=== PATIENT | female | born 1930 | race Caucasian/White ===

== ENCOUNTER → 2017-11-10 | Outpatient (CLI) | payer MEDICARE, OTHER ==
[~2017-11-10] MED LIST: CIPR250 PO; GLIM2; HYDACE5; HYDACE5 PO; IBUP200; MULVITB; PHENA200 PO; ROSU10TA; RXHYDACE PO
[2017-11-10 15:04] LABS: Source, Urine Clean Catch
[2017-11-10 15:48] LABS: Appearance, Urine Hazy (Clear); Color, Urine Yellow (P-Yellow)
[2017-11-10 15:49] LABS: Bacteria Not Seen /hpf; Bilirubin, Urine Neg (Neg); Blood, Urine Neg (Neg); Glucose Qualitative, Urine 1+ (Normal); Hyaline Casts 0-2 /lpf (0-2); Ketones, Urine Neg (Neg); Leukocyte Esterase, Urine Trace (Neg); Nitrite, Urine Neg (Neg); Protein, Urine 2+ (Neg); Red Blood Cells, Urine 0-2 /hpf (0-2); Squamous Epithelial Cells Few /hpf (Few); Urobilinogen, Urine NORM (Normal)
== END | disposition home or self-care (01) ==
LOC: LAB EV 14:45
PROVIDERS: Nurse Practitioner Family
DX: R10.9 Unspecified abdominal pain (principal)
CPT/HCPCS: 81001; 87086

== ENCOUNTER → 2019-04-28 | Outpatient (CLI) | payer MEDICARE, OTHER | END | disposition home or self-care (01) | LOC: LAB EV 15:00 → LAB SHORT 15:00 | DX: N39.0 Urinary tract infection, site not specified (principal) | CPT/HCPCS: 87086 ==

== ENCOUNTER 2020-03-17 15:19 | Emergency (ER) | payer MEDICARE, OTHER ==
[~2020-03-17] VITALS: Ht 172.7 cm; Wt 68.0 kg
[2020-03-17 15:38] LABS: BASOPHILS ABSOLUTE AUTO 0.01 K/mm3 (0.00-0.23); BASOPHILS PERCENT AUTO 0 % (0-2); EOSINOPHILS ABSOLUTE AUTO 0.04 K/mm3 (0.00-0.68); EOSINOPHILS PERCENT AUTO 1 % (0-6); Hematocrit 33.7 % (33.0-51.0); Hemoglobin 10.8 g/dL (11.5-16.0); IMMATURE GRAN ABSOLUTE AUTO 0.04 K/mm3 (0.00-0.10); IMMATURE GRAN PERCENT AUTO 1 % (0-1); LYMPHOCYTES ABSOLUTE AUTO 1.46 K/mm3 (0.84-5.20); LYMPHOCYTES PERCENT AUTO 39 % (21-46); MONOCYTES ABSOLUTE AUTO 0.38 K/mm3 (0.16-1.47); MONOCYTES PERCENT AUTO 10 % (4-13); Mean Corpuscular HGB 27.6 pg (26.0-34.0); Mean Corpuscular Volume 86 fL (80-100); Mean Platelet Volume 10.2 fL (9.1-12.4); NEUTROPHILS ABSOLUTE AUTO 1.85 K/mm3 (1.96-9.15); NEUTROPHILS PERCENT AUTO 49 % (41-73); Platelet Count 243 K/mm3 (150-400); RDW Coefficient Variation 15.2 % (11.7-14.2); RDW Standard Deviation 48.3 fL (35.1-46.3); Red Blood Cell Count 3.92 M/mm3 (3.80-5.20); White Blood Cell Count 3.78 K/mm3 (4.00-11.30)
[2020-03-17] MEDS ORDERED: Norvasc5 MG PO (15:50)
[2020-03-17] MEDS ORDERED: METF500 PO (15:53)
[2020-03-17] MEDS ORDERED: INSULANPEN SC (15:54)
[2020-03-17] MEDS ORDERED: DONE10 (15:54)
[2020-03-17] MEDS ORDERED: VITAMIN D325 MC1 PO (15:56)
[2020-03-17] MEDS ORDERED: TOCO1000 PO (15:57)
[2020-03-17] MEDS ORDERED: CENTRUM SILVER1 EAC2 PO (15:57)
[2020-03-17] MEDS ORDERED: ASCO500 PO (15:57)
[2020-03-17 16:02] LABS: Alanine Aminotransfer (ALT/SGP 18 U/L (12-78); Albumin, Blood 2.5 g/dL (3.4-5.0); Albumin/Globulin Ratio 0.6 (0.8-1.8); Alk Phos 94 U/L (50-136); Anion Gap 9 mmol/L (6-16); Aspartate Aminotrans (AST/SGOT 25 U/L (12-37); Bilirubin, Total 0.4 mg/dL (0.1-1.0); Blood Urea Nitrogen 18 mg/dL (8-24); Bun/Creatinine Ratio 10.1 (12.0-20.0); CO2, Blood 23 mmol/L (21-32); Calcium, Blood 8.5 mg/dL (8.5-10.1); Chloride, Blood 109 mmol/L (98-108); Creatinine, Blood 1.78 mg/dL (0.40-1.00); Globulin, Blood 4.4 g/dL (2.2-4.0); Glomerular Filtration Rate 29 (60-); Glucose, Blood 156 mg/dL (70-99); Potassium, Blood 3.2 mmol/L (3.5-5.5); Sodium, Blood 141 mmol/L (136-145); Total Protein, Blood 6.9 g/dL (6.4-8.2); Troponin I <0.015 ng/mL (0.000-0.040)
== END 2020-03-17 19:22 | disposition home or self-care (01) ==
LOC: ER 15:19
PROVIDERS: Emergency Medicine
DX: R55 Syncope and collapse (principal); S00.83XA Contusion of other part of head, initial encounter; E87.6 Hypokalemia; I10 Essential (primary) hypertension; E11.9 Type 2 diabetes mellitus without complications; F03.90 Unspecified dementia, unspecified severity, without behavioral disturbance, psychotic disturbance, mood disturbance, and anxiety; Z91.010 Allergy to peanuts; Z79.899 Other long term (current) drug therapy; Z79.4 Long term (current) use of insulin; W18.30XA Fall on same level, unspecified, initial encounter
CPT/HCPCS: 36415; 70450; 71046; 72125; 80053; 83880; 84484; 85025; 93005; 93010; 96374; 99285-25; A9270

== ENCOUNTER 2021-01-02 07:23 | Day surgery (SDC) | payer MEDICARE, OTHER ==
[~2021-01-02] VITALS: Ht 170.2 cm; Wt 56.0 kg
[~2021-01-02 07:23] MED LIST changes: +ASCO500 PO; +CENTRUM SILVER1 EAC2 PO; +DONEPEZIL HCL10 MG PO; +INSULANPEN SC; +METF500 PO; +Norvasc5 MG PO; +TOCO1000 PO; +VITAMIN D325 MC1 PO
[2021-01-02] MEDS ORDERED: FURO40 PO (07:28)
[2021-01-02] MEDS ORDERED: TRADJENTA5 MG PO (07:29)
[2021-01-02] MEDS ORDERED: TRAM50 PO (07:31)
[2021-01-02 08:06] LABS: BASOPHILS PERCENT AUTO 0 % (0-2); EOSINOPHILS ABSOLUTE AUTO 0.01 K/mm3 (0.00-0.68); EOSINOPHILS PERCENT AUTO 0 % (0-6); Hematocrit 36.9 % (33.0-51.0); Hemoglobin 11.5 g/dL (11.5-16.0); IMMATURE GRAN ABSOLUTE AUTO 0.05 K/mm3 (0.00-0.10); IMMATURE GRAN PERCENT AUTO 1 % (0-1); LYMPHOCYTES ABSOLUTE AUTO 0.83 K/mm3 (0.84-5.20); LYMPHOCYTES PERCENT AUTO 14 % (21-46); MONOCYTES ABSOLUTE AUTO 0.66 K/mm3 (0.16-1.47); MONOCYTES PERCENT AUTO 11 % (4-13); Mean Corpuscular HGB 24.7 pg (26.0-34.0); Mean Corpuscular HGB Conc 31.2 g/dL (31.5-36.5); Mean Corpuscular Volume 79 fL (80-100); Mean Platelet Volume 9.5 fL (9.1-12.4); NEUTROPHILS ABSOLUTE AUTO 4.54 K/mm3 (1.96-9.15); NEUTROPHILS PERCENT AUTO 75 % (41-73); Platelet Count 393 K/mm3 (150-400); RDW Coefficient Variation 18.7 % (11.7-14.2); RDW Standard Deviation 51.4 fL (35.1-46.3); Red Blood Cell Count 4.65 M/mm3 (3.80-5.20); White Blood Cell Count 6.09 K/mm3 (4.00-11.30)
[2021-01-02 08:18] LABS: International Normalized Ratio 1.1; Prothrombin Time Results 11.7 Sec (9.7-11.5)
[2021-01-02 08:26] LABS: Bun/Creatinine Ratio 12.4 (12.0-20.0); Calcium, Blood 8.7 mg/dL (8.5-10.1); Creatinine, Blood 3.4 mg/dL (0.40-1.00); Potassium, Blood 3.5 mmol/L (3.5-5.5)
--- NOTE | 2021-01-02 12:30 | NUR ---
DISCHARGE PT REMAINED A&OX3 DURING RECOVERY AND DENIED ANY PAIN OTHER THAN IN HER BACK WITH REPOSITIONING (PT STATED THIS IS A LONG LASTING ISSUE). PT'S PAIN WAS RELIEVED SHORTLY AFTER REPOSITIONING. LEFT UPPER CHEST SITE REMAINS CDI-NO HEMATOMA NOTED. PT ABLE TO ASSIST WITH DRESSING. PT WAS WHEELED TO RESTROOM TO VOID. DISCHARGE PAPERWORK GONE OVER WITH PT AND DAUGHTER. PT AND DAUGHTER VERBALLY STATED THE UNDERSTANDING OF THE DISCHARGE EDUCATION AND DENIED ANY QUESTIONS AT THIS TIME. PT WAS WHEELED OUT BY THIS NURSE TO PERSONAL CAR. PT DENIED ANY PAIN AT THIS TIME.
== END 2021-01-02 12:30 | disposition home or self-care (01) ==
LOC: MHTC 07:23
PROVIDERS: Radiology Diagnostic Radiology
DX: I12.0 Hypertensive chronic kidney disease with stage 5 chronic kidney disease or end stage renal disease (principal); E11.22 Type 2 diabetes mellitus with diabetic chronic kidney disease; N18.6 End stage renal disease; Z79.84 Long term (current) use of oral hypoglycemic drugs; Z85.528 Personal history of other malignant neoplasm of kidney; Z85.048 Personal history of other malignant neoplasm of rectum, rectosigmoid junction, and anus; Z90.5 Acquired absence of kidney; J45.909 Unspecified asthma, uncomplicated; F03.90 Unspecified dementia, unspecified severity, without behavioral disturbance, psychotic disturbance, mood disturbance, and anxiety; E78.5 Hyperlipidemia, unspecified; R63.6 Underweight; Z96.642 Presence of left artificial hip joint; Z80.52 Family history of malignant neoplasm of bladder; Z80.1 Family history of malignant neoplasm of trachea, bronchus and lung; Z88.2 Allergy status to sulfonamides; Z91.010 Allergy to peanuts; Z68.1 Body mass index [BMI] 19.9 or less, adult
CPT/HCPCS: 36558; 76937; 77001; 80048; 85025; 85610; 99152; C1750; C1769; C1894; J1644; J2250; J3010; J7040

== ENCOUNTER 2021-01-25 18:21 | Inpatient (IN) | payer MEDICARE, OTHER ==
[~2021-01-25] VITALS: Ht 172.7 cm; Wt 50.9 kg
[~2021-01-25 18:21] MED LIST changes: +FURO40 PO; +TRADJENTA5 MG PO; +TRAM50 PO
[2021-01-25 19:06] LABS: BASOPHILS PERCENT AUTO 0 % (0-2); EOSINOPHILS PERCENT AUTO 0 % (0-6); Hematocrit 33.9 % (33.0-51.0); Hemoglobin 10.5 g/dL (11.5-16.0); IMMATURE GRAN ABSOLUTE AUTO 0.12 K/mm3 (0.00-0.10); IMMATURE GRAN PERCENT AUTO 2 % (0-1); LYMPHOCYTES ABSOLUTE AUTO 1.12 K/mm3 (0.84-5.20); LYMPHOCYTES PERCENT AUTO 16 % (21-46); MONOCYTES ABSOLUTE AUTO 0.63 K/mm3 (0.16-1.47); MONOCYTES PERCENT AUTO 9 % (4-13); Mean Corpuscular HGB 25.1 pg (26.0-34.0); Mean Corpuscular Volume 81 fL (80-100); Mean Platelet Volume 10.7 fL (9.1-12.4); NEUTROPHILS ABSOLUTE AUTO 4.97 K/mm3 (1.96-9.15); NEUTROPHILS PERCENT AUTO 73 % (41-73); Platelet Count 232 K/mm3 (150-400); RDW Coefficient Variation 19.3 % (11.7-14.2); RDW Standard Deviation 55.8 fL (35.1-46.3); Red Blood Cell Count 4.19 M/mm3 (3.80-5.20); White Blood Cell Count 6.84 K/mm3 (4.00-11.30)
[2021-01-25 19:39] LABS: Albumin, Blood 2.4 g/dL (3.4-5.0); Albumin/Globulin Ratio 0.5 (0.8-1.8); Bilirubin, Total 0.5 mg/dL (0.1-1.0); Bun/Creatinine Ratio 11.3 (12.0-20.0); Creatinine, Blood 2.74 mg/dL (0.40-1.00); Potassium, Blood 4.3 mmol/L (3.5-5.5); Total Protein, Blood 7.4 g/dL (6.4-8.2); Troponin I 0.373 ng/mL (0.000-0.040)
[2021-01-25] MEDS ORDERED: FUROSEMIDE40 MG PO (21:37)
[2021-01-25] MEDS ORDERED: ROSUVASTATIN CA10 MG PO (21:37)
--- NOTE | 2021-01-25 23:36 | NUR ---
PATIENT IS A NEW ADMIT FROM THE ED. THREE PERSON TRANSFER FROM THE [facility] TO BED. AXOX 3 AND FORGETFUL WITH HX OF DEMENTIA. KNOWS PLACE, MONTH, BUT NOT SURE WHEN SHE JUST HAD DIALYIS A FEW DAYS AGO. ON 4L O2 NC STATING 90% AND RA BASELINE. DR DAVIS CONSULT CALLED IN. DIALYSIS PORT RU CHEST. PATIENT ORIENTED TO ROOM AND CALL LIGHT SYSTEM. WARM BLANKET PROVIDED. BED ALARM ON AND CALL LIGHT IN REACH.
--- NOTE | 2021-01-25 23:43 | NUR ---
DR DAVIS PRESENT IN ROOM FOR CONSULT. REPORTS DIALYSIS TOMORROW. TELEMETRY PLACED AND TECH REPORTS NSR 89. IV BUMEX 2 MG GIVEN PER EMAR. DR DAVIS REPORTS TO DC IV BUMEX AND CHANGE ORDER TO PO ON NON-DIALYSIS DAYS. PATIENT RESTING AT THIS TIME.
--- NOTE | 2021-01-26 04:47 | NUR ---
SHIFT SUMMARY PATIENT SOB WHEN UP TO BEDSIDE COMMODE. WAS ON 4L O2 NC AND NEEDED 6L O2 TO RECOVER IN BED AND BACK DOWN TO 5L O2 NC. ROOM AIR BASELINE. DR DAVIS IN TO SEE PATIENT AND REPORTS DIALYSIS TODAY AND REPORTS PERMISSIVE HYPERTENSION OK FOR DIALYSIS. AXOX 3 AND ONE ASSIST TO BSC. PIV REMAINS INTACT. EMPLOYMENT DIRECTOR REPORTS NSR 89. DIALYSIS PORT RU CHEST INTACT. DENIES CHEST PAIN AND N/V. CALL LIGHT IN REACH. BED IN LOWEST POSITION. WILL CONTINUE TO MONITOR UNTIL DAY SHIFT NURSE ASSUMES CARE.
[2021-01-26 06:03] LABS: Hematocrit 33.7 % (33.0-51.0); Hemoglobin 10.5 g/dL (11.5-16.0)
[2021-01-26 06:27] LABS: Albumin, Blood 2.2 g/dL (3.4-5.0); Anion Gap 5 mmol/L (6-16); Blood Urea Nitrogen 34 mg/dL (8-24); Bun/Creatinine Ratio 11.6 (12.0-20.0); CO2, Blood 35 mmol/L (21-32); Calcium, Blood 9.1 mg/dL (8.5-10.1); Chloride, Blood 98 mmol/L (98-108); Creatinine, Blood 2.92 mg/dL (0.40-1.00); Glomerular Filtration Rate 16 (60-); Glucose, Blood 211 mg/dL (70-99); Magnesium, Blood 2.3 mg/dL (1.6-2.4); Phosphorus, Blood 3.6 mg/dL (2.5-4.9); Potassium, Blood 4.1 mmol/L (3.5-5.5); Sodium, Blood 138 mmol/L (136-145); Troponin I 0.369 ng/mL (0.000-0.040)
--- NOTE | 2021-01-26 07:28 | NUR ---
RECEIVED PT FROM NIGHT RN WHO STATES PT HAS INCREASED BP. NIGHT NURSE HAS REPORTED THIS TO DR DAVIS AND DIRECTIONS TO HOLD BUMEX ON DIALYSIS DAYS. DIALYSIS TO BE COMPLETED TODAY. WILL CONT. TO MONITOR.
--- NOTE | 2021-01-26 12:16 | NUR ---
CARE COORDINATION REFERRAL - ADMIT: 01/25/21 DISCHARGE: DX: ACUTE HYPOXIA RESP. FAILURE CC: kwilcox OK CALL: RESIDENCE: HOME CAREGIVER: OLEG CASTANO, FRIEND, DORCAS SCHULTE, CHILD, MALU SUMMERS , CHILD, DX: ALZHEIMER'S DISEASE, HTN, CKD-STAGE 4, GERD, DM-TYPE 2, SEE LIST DME: DM SUPPLIES CCM: REFERRAL 12/2020 HOME HEALTH: [facility]- 2020 SUMMARY: ADMIT: 01/25/21
--- NOTE | 2021-01-26 15:11 | NUR ---
Dialysis Pt late to dialysis due to stat echogram. Says she is really tried.
--- NOTE | 2021-01-26 16:10 | NUR ---
01/26/21- PER DR. MANZANARES, PT COULD POTENTIALLY BE D/C OVER THE WEEKEND. PER CHART REVIEW, PT HAS DIALYSIS TODAY. SHE HAS BEEN ON 5L O2. -CARLEE
--- NOTE | 2021-01-26 17:08 | NUR ---
Pt currently undergoing dialysis in dialysis room with her daughter at bedside. Pt is alert, pleasant and cooperative. She states she's very excited to see her daughter today, but also "very tired". Information given to pt's daughter regarding POLST and Advanced Directive. She states they will look at it over the weekend, then we'll draft roller picker on Friday to review it together.
--- NOTE | 2021-01-26 18:24 | NUR ---
PT RESTING IN ROOM WITH DAUGHTER AT BEDSIDE. PT MAKES NO C/O CHEST PAIN OR SOB AT THIS TIME. PT EATING DINNER AND IS MEDICATION COMPLIANT. PT REMAINS ALERT AND ORIENTED X3 (NOT TO DATE). DAUGHTER REPORTS PT HAS RECENTLY LOST 60 LBS IN 2020, WHEN SHE INJURED HER BACK AND THAT SINCE THEN, SHE HAS NOT BEEN MOBILE AND MAY NEED HOME HEALTH HELP UPON DC. PT BED ALARM ON AND CALL LIGHT WITHIN REACH. STAFF WILL CONT. TO MONITOR AND WAIT FOR CARDIOLOGY CONSULT.
[2021-01-27 05:19] LABS: Hematocrit 33.3 % (33.0-51.0); Hemoglobin 10.6 g/dL (11.5-16.0)
[2021-01-27 05:51] LABS: Albumin, Blood 2.1 g/dL (3.4-5.0); Anion Gap 9 mmol/L (6-16); Blood Urea Nitrogen 23 mg/dL (8-24); CHOL/HDL RATIO 2.1; CO2, Blood 31 mmol/L (21-32); Calcium, Blood 8.9 mg/dL (8.5-10.1); Chloride, Blood 95 mmol/L (98-108); Cholesterol 159 mg/dL (50-200); Creatinine, Blood 2.29 mg/dL (0.40-1.00); Glomerular Filtration Rate 21 (60-); Glucose, Blood 169 mg/dL (70-99); HDL Cholesterol 77 mg/dL (>39); LDL/HDL RATIO 0.7; Low Density Lipoprotein Chol 56 mg/dL (0-110); Magnesium, Blood 2.2 mg/dL (1.6-2.4); Phosphorus, Blood 2.8 mg/dL (2.5-4.9); Potassium, Blood 3.6 mmol/L (3.5-5.5); Sodium, Blood 135 mmol/L (136-145); Triglycerides 132 mg/dL (30-160); Very Low Density Lipoprot Chol 26 mg/dL (6-32)
--- NOTE | 2021-01-27 05:52 | NUR ---
SHIFT SUMMARY- PT. A&OX3 WITH INTERMITTENT CONFUSION, HX OF DEMENTIA. PLEASANT AND COOPERATIVE WITH CARE. ASLEEP T/O MOST OF THE NIGHT. NO COMPLAINTS THIS SHIFT. PT. SATS IN THE 80'S EARLY THIS AM WHILE ON BEDREST. RT NOTIFIED AND PT. O2 INCREASED FROM 5L TO 10L HIGH FLOW, TOLERATING WELL. PT. DENIED SOB, NO C/O CP, OR DISCOMFORT. ON HEMODIALYSIS, NO URINE OUTPUT LAST NIGHT. PERFORMED BLADDER SCAN PER ORDER WITH RESULT OF 28MLS. ALSO INSTRUMENT LENS GENERATOR DR. ADAMES CALLED DURING THE NIGHT REGARDING CONSULT IN PLACE. PT. DENIES NEEDS AT THIS TIME. CALL LIGHT WITHIN REACH, SIDE RAILS UPX2, AND BED ALARM ON FOR SAFETY. WILL CONT TO MONITOR.
--- NOTE | 2021-01-27 16:43 | NUR ---
SHIFT SUMMARY PT AOX3; FORGERTFUL AT TIMES. DTR AT BEDSIDE TODAY FROM [place]. PT LIVES WITH HER ROOM MATE, BUT BOTH OF THEM DOES NOT DRIVE PER DTR. PT DESAT THIS AFTERNOON ON 6L 02 VIA NC. CALLED RT; AND INCREASED O2 TO 15L . PT SATS HIGH 80S AND STATED SOB PRIOR HEMODIALYSIS. PT STATED FEELING BETTER ON 15L. WILL RECHECK SATS. PT IS NOW RECEIVING DIALYSIS IN THE ROOM. BED IS IN THE LOWEST POSITION AND CALL LIGHT WITHIN REACH
--- NOTE | 2021-01-28 05:00 | NUR ---
SHIFT SUMMARY- PT. ASLEEP IN BED MOST OF THE NIGHT. HAD NO COMPLAINTS T/O THE NIGHT. DECREASED TO 9L HIGH FLOW O2, SATS IN THE LOW 90'S. DENIED ANY NEEDS DURING THE NIGHT. CALL LIGHT WITHIN REACH AND SIDE RAILS UPX2. WILL CONT TO MONITOR.
[2021-01-28 05:03] LABS: Hematocrit 30.5 % (33.0-51.0); Hemoglobin 9.4 g/dL (11.5-16.0)
[2021-01-28 05:23] LABS: Anion Gap 6 mmol/L (6-16); Blood Urea Nitrogen 20 mg/dL (8-24); Bun/Creatinine Ratio 9.5 (12.0-20.0); CO2, Blood 31 mmol/L (21-32); Calcium, Blood 8.7 mg/dL (8.5-10.1); Chloride, Blood 102 mmol/L (98-108); Glomerular Filtration Rate 24 (60-); Glucose, Blood 131 mg/dL (70-99); Magnesium, Blood 2.1 mg/dL (1.6-2.4); Phosphorus, Blood 3.3 mg/dL (2.5-4.9); Potassium, Blood 3.9 mmol/L (3.5-5.5); Sodium, Blood 139 mmol/L (136-145)
[2021-01-28] MEDS ORDERED: BUME2 PO (13:12)
[2021-01-28] MEDS ORDERED: IPRAT-ALBUT 0.5-3 ML INH (13:13)
[2021-01-28] MEDS ORDERED: AZIT500 PO (13:13)
[2021-01-28] MEDS ORDERED: CEFD300 PO (13:13)
--- NOTE | 2021-01-28 18:10 | NUR ---
DISCHARGE PT DISCHARGED TO HOME WITH [facility]. IV DC'D. PT WAS REALLY SOB, BUT SATS ABOVE 90'S ON 2L. PT EDUCATED ABOUT MEDICATIONS WITH DTR AT BEDSIDE, FAXED MEDICATIONS TO [facility]. PT ALSO RECEIVED HOME O2; AND JANINE WILL BRING THE NEBULIZER MACHINE TONIGHT. PT WAS GIVEN NEBULIZER MEDICATION FOR TONIGHT SINCE THE PHARMACY IS CLOSED TODAY AND SHE WILL BE NEEDING TX TONIGHT. PT WAS GIVEN BP MEDS ONCE THIS AFTERNOON. PT FEELS VERY SOB WHEN MOVING. EDUCATED THE PT ABOUT TO KEEP THE OXYGEN AND HOW TO USE IT. VALUABLE ITEMS WITH PT. PT CAME HOME WITH DTR. PT AWARE ABOUT FU APPOINTMENTS TO [facility] WITHIN [address] DAVIS WITHIN 1 WEEK AND DIALYSIS.
== END 2021-01-28 17:55 | disposition home health service (06) | DRG 291 ==
LOC: ER 18:21 → MEDS 18:22
PROVIDERS: Internal Medicine Nephrology; Physician Assistant; ADMIT Internal Medicine
DX: I13.2 Hypertensive heart and chronic kidney disease with heart failure and with stage 5 chronic kidney disease, or end stage renal disease (principal); N18.6 End stage renal disease; I50.41 Acute combined systolic (congestive) and diastolic (congestive) heart failure; N25.81 Secondary hyperparathyroidism of renal origin; E87.1 Hypo-osmolality and hyponatremia; I24.8 Other forms of acute ischemic heart disease; E11.22 Type 2 diabetes mellitus with diabetic chronic kidney disease; F03.90 Unspecified dementia, unspecified severity, without behavioral disturbance, psychotic disturbance, mood disturbance, and anxiety; J44.9 Chronic obstructive pulmonary disease, unspecified; D64.9 Anemia, unspecified; Z85.048 Personal history of other malignant neoplasm of rectum, rectosigmoid junction, and anus; Z98.890 Other specified postprocedural states; Z88.1 Allergy status to other antibiotic agents; E88.09 Other disorders of plasma-protein metabolism, not elsewhere classified; Z66 Do not resuscitate; Z88.2 Allergy status to sulfonamides; Z91.010 Allergy to peanuts; Z79.899 Other long term (current) drug therapy; Z88.8 Allergy status to other drugs, medicaments and biological substances; R31.9 Hematuria, unspecified; I08.1 Rheumatic disorders of both mitral and tricuspid valves
CPT/HCPCS: 36415; 71045; 80053; 80061; 80069; 82947; 83735; 84484; 85014; 85018; 85025; 93005; 93010; 93306; 94640; 94760; 94761; 96372; 96375; 97110; 97161; 97530; 99285-25; A9270; G0378; J0456; J0696; J0881; J1644; J7050

== ENCOUNTER 2021-03-17 18:54 | Observation (INO) | payer MEDICARE, OTHER ==
[~2021-03-17] VITALS: Ht 175.3 cm; Wt 50.8 kg
[~2021-03-17 18:54] MED LIST changes: +AZIT500 PO; +BUME2 PO; +CEFD300 PO; +FUROSEMIDE40 MG PO; +IPRAT-ALBUT 0.5-3 ML INH; +ROSUVASTATIN CA10 MG PO
[2021-03-17 20:13] LABS: Albumin, Blood 2.4 g/dL (3.4-5.0); Albumin/Globulin Ratio 0.6 (0.8-1.8); Bilirubin, Total 0.3 mg/dL (0.1-1.0); Bun/Creatinine Ratio 11.4 (12.0-20.0); Calcium, Blood 8.5 mg/dL (8.5-10.1); Creatinine, Blood 1.14 mg/dL (0.40-1.00); Globulin, Blood 4.1 g/dL (2.2-4.0); Magnesium, Blood 1.9 mg/dL (1.6-2.4); Phosphorus, Blood 2.1 mg/dL (2.5-4.9); Total Protein, Blood 6.5 g/dL (6.4-8.2)
[2021-03-18 04:57] LABS: BASOPHILS ABSOLUTE AUTO 0.01 K/mm3 (0.00-0.23); BASOPHILS PERCENT AUTO 0 % (0-2); EOSINOPHILS ABSOLUTE AUTO 0.01 K/mm3 (0.00-0.68); EOSINOPHILS PERCENT AUTO 0 % (0-6); Hematocrit 30.6 % (33.0-51.0); Hemoglobin 9.9 g/dL (11.5-16.0); IMMATURE GRAN ABSOLUTE AUTO 0.04 K/mm3 (0.00-0.10); IMMATURE GRAN PERCENT AUTO 1 % (0-1); LYMPHOCYTES ABSOLUTE AUTO 1.09 K/mm3 (0.84-5.20); LYMPHOCYTES PERCENT AUTO 23 % (21-46); MONOCYTES ABSOLUTE AUTO 0.57 K/mm3 (0.16-1.47); MONOCYTES PERCENT AUTO 12 % (4-13); Mean Corpuscular HGB 28.4 pg (26.0-34.0); Mean Corpuscular HGB Conc 32.4 g/dL (31.5-36.5); Mean Corpuscular Volume 88 fL (80-100); Mean Platelet Volume 10.7 fL (9.1-12.4); NEUTROPHILS PERCENT AUTO 64 % (41-73); Platelet Count 149 K/mm3 (150-400); RDW Coefficient Variation 18.6 % (11.7-14.2); RDW Standard Deviation 59.1 fL (35.1-46.3); Red Blood Cell Count 3.48 M/mm3 (3.80-5.20); White Blood Cell Count 4.82 K/mm3 (4.00-11.30)
--- NOTE | 2021-03-18 05:12 | NUR ---
SHIFT SUMMARY REPORT FROM ALETA NIXON, ED @ 0008. ARRIVED TO MEDICAL UNIT @ 0100 VIA STRETCHER. TRANSFER ASSISTANCE REQUIRED. ORIENTED TO ROOM AND CALL SYSTEM. A/0 X 2-3, ABLE TO MAKE NEEDS KNOWN. COOPERATIVE WITH CARE. CALLS AND ANSWERS QUESTIONS TO BEST OF KNOWLEDGE. NO C/O PAIN/DISCOMFORT. DID STATE FELT DIZZY WITH TURNING DURING ATTENDS CHANGES. HAD X1 INCONT STOOL. REMAINS ON 2L VIA NC WHICH IS BASELINE. NO C/O SOB. RECIEVING NS @ 75 ML/HR WITHOUT COMPLICATION. NO ACUTE CHANGES NOTED OVERNIGHT. BED REMAINED IN LOWEST POSITION; ALARM ON. CALL LIGHT AND BELONGINGS WITHIN REACH. CONTINUE WITH CURRENT PLAN OF CARE. REPORT TO ONCRAQUEL NIXON.
[2021-03-18 05:30] LABS: Albumin, Blood 2.1 g/dL (3.4-5.0); Albumin/Globulin Ratio 0.6 (0.8-1.8); Bilirubin, Total 0.3 mg/dL (0.1-1.0); Calcium, Blood 8.2 mg/dL (8.5-10.1); Creatinine, Blood 1.62 mg/dL (0.40-1.00); Globulin, Blood 3.7 g/dL (2.2-4.0); Total Protein, Blood 5.8 g/dL (6.4-8.2)
--- NOTE | 2021-03-18 11:24 | NUR ---
echocardiogram completed
[2021-03-18 15:57] LABS: Source, Urine Clean Catch
[2021-03-18 16:27] LABS: Appearance, Urine Cloudy (Clear); Bilirubin, Urine Neg (Neg); Blood, Urine 4+ (Neg); Color, Urine Yellow (P-Yellow); Glucose Qualitative, Urine 2+ (Neg); Ketones, Urine Neg (Neg); Leukocyte Esterase, Urine 3+ (Neg); Nitrite, Urine Neg (Neg); Protein, Urine 4+ (Neg); Specific Gravity, Urine 1.015 (1.003-1.022); Urobilinogen, Urine NORM (Normal)
[2021-03-18 16:51] LABS: Amorphous Light (0-Heavy); Bacteria Many /hpf; Red Blood Cells, Urine 25-50 /hpf (0-2); Squamous Epithelial Cells Few /hpf (Few); Transitional Epithelial Cells Few /hpf (0-Rare); White Blood Cells, Urine 50-100 /hpf (0-5)
[2021-03-19 04:49] LABS: BASOPHILS ABSOLUTE AUTO 0.01 K/mm3 (0.00-0.23); BASOPHILS PERCENT AUTO 0 % (0-2); EOSINOPHILS ABSOLUTE AUTO 0.06 K/mm3 (0.00-0.68); EOSINOPHILS PERCENT AUTO 1 % (0-6); Hematocrit 31.1 % (33.0-51.0); Hemoglobin 10.4 g/dL (11.5-16.0); IMMATURE GRAN ABSOLUTE AUTO 0.04 K/mm3 (0.00-0.10); IMMATURE GRAN PERCENT AUTO 1 % (0-1); LYMPHOCYTES ABSOLUTE AUTO 1.24 K/mm3 (0.84-5.20); LYMPHOCYTES PERCENT AUTO 26 % (21-46); MONOCYTES ABSOLUTE AUTO 0.66 K/mm3 (0.16-1.47); MONOCYTES PERCENT AUTO 14 % (4-13); Mean Corpuscular HGB 28.3 pg (26.0-34.0); Mean Corpuscular HGB Conc 33.4 g/dL (31.5-36.5); Mean Corpuscular Volume 85 fL (80-100); Mean Platelet Volume 10.3 fL (9.1-12.4); NEUTROPHILS ABSOLUTE AUTO 2.79 K/mm3 (1.96-9.15); NEUTROPHILS PERCENT AUTO 58 % (41-73); Platelet Count 154 K/mm3 (150-400); RDW Coefficient Variation 18.6 % (11.7-14.2); Red Blood Cell Count 3.67 M/mm3 (3.80-5.20)
[2021-03-19 05:14] LABS: Albumin, Blood 2.2 g/dL (3.4-5.0); Albumin/Globulin Ratio 0.6 (0.8-1.8); Bilirubin, Total 0.2 mg/dL (0.1-1.0); Bun/Creatinine Ratio 14.4 (12.0-20.0); Calcium, Blood 8.4 mg/dL (8.5-10.1); Creatinine, Blood 2.01 mg/dL (0.40-1.00); Globulin, Blood 3.7 g/dL (2.2-4.0); Phosphorus, Blood 4.7 mg/dL (2.5-4.9); Potassium, Blood 4.1 mmol/L (3.5-5.5); Total Protein, Blood 5.9 g/dL (6.4-8.2)
--- NOTE | 2021-03-19 05:20 | NUR ---
SHIFT SUMMARY ALERT TO SELF AND FOLLOWING DIRECTIONS. COOPERATIVE WITH CARE. CALLS AND ANSWERS QUESTIONS TO THE BED OF HER KNOWLEDGE. NO C/O PAIN/DISCOMFORT. CONTINUES TO C/O DIZZINESS WITH POSITION CHANGES. INCONT OF STOOL; ATTENDS IN PLACE WITH ROUTINE CHECKS. APPEARED TO REST MUCH OF THE NIGHT. TELE RUNNING SR IN 70s. VSS/AFEBRILE. NO ACUTE CHANGES NOTED OVERNIGHT. BED REMAINS IN LOWEST POSITION. CALL LIGHT AND BELONGINGS WITHIN REACH. CONTINUE WITH CURRENT PLAN OF CARE. REPORT TO ONCOMING RN.
--- NOTE | 2021-03-19 14:15 | NUR ---
DAUGHTER DORCAS SCHULTE [phone]. LIVES IN [place]. REQUESTS MD BONILLA, NOTIFIED. DAUGHTER WILL BE COMING FROM [place] ON FRIDAY. DAUGHTER STATES THAT PATIENT HAS LIVED WITH ROOMMATE FOR 32 YEARS. ROOMMATE IS ELDERLY AND RECIEVING CHEMO 3X/WK. PT SON, JASMEET LIVES LOCALLY, AND IS RARELY INVOLVED IN CARE FOR PT, PER DTR.
--- NOTE | 2021-03-19 14:31 | NUR ---
ADMIT: 03/17/21 DISCHARGE: DX: Syncope CC: kwilcox OK CALL: RESIDENCE: CAREGIVER: Pia Silva/friend [phone], Emilee Browning/daughter [phone], and Drew Hutchins/son [phone]. DX: Alzheimer's, CKD-stage 4, HTN, GERD, DM-type 2, see list DME: DM supplies CCM: Referral- 2016 & 12/2020 HOME HEALTH: [facility]- 2020 SUMMARY: Admit; 03/17/21 03/19/21- per chart review with Dr. Lopez, pt is dialysis pt. Dr. Kapadia is seeing pt. in the hospital. PT is recommended for SNF for short term and for LTC- adult foster or assisted living. Pt has room mate that they help each other and this was found to not be a safe situation. OT saw pt and is recommending SNF due to being below baseline and needing polymerization kettle operator care. -jose
[2021-03-19] MEDS ORDERED: FURO40 (14:59)
[2021-03-19] MEDS ORDERED: TRADJENTA5 MG PO (15:00)
[2021-03-19] MEDS ORDERED: TRAM50 PO (15:01)
[2021-03-19] MEDS ORDERED: ONDA4ODT MM (15:03)
[2021-03-20 03:45] LABS: BASOPHILS ABSOLUTE AUTO 0.01 K/mm3 (0.00-0.23); BASOPHILS PERCENT AUTO 0 % (0-2); EOSINOPHILS ABSOLUTE AUTO 0.06 K/mm3 (0.00-0.68); EOSINOPHILS PERCENT AUTO 1 % (0-6); Hematocrit 30.3 % (33.0-51.0); Hemoglobin 10.3 g/dL (11.5-16.0); IMMATURE GRAN ABSOLUTE AUTO 0.04 K/mm3 (0.00-0.10); IMMATURE GRAN PERCENT AUTO 1 % (0-1); LYMPHOCYTES ABSOLUTE AUTO 1.35 K/mm3 (0.84-5.20); LYMPHOCYTES PERCENT AUTO 25 % (21-46); MONOCYTES ABSOLUTE AUTO 0.73 K/mm3 (0.16-1.47); MONOCYTES PERCENT AUTO 13 % (4-13); Mean Corpuscular HGB 28.6 pg (26.0-34.0); Mean Corpuscular Volume 84 fL (80-100); Mean Platelet Volume 10.6 fL (9.1-12.4); NEUTROPHILS ABSOLUTE AUTO 3.27 K/mm3 (1.96-9.15); NEUTROPHILS PERCENT AUTO 60 % (41-73); Platelet Count 182 K/mm3 (150-400); RDW Coefficient Variation 18.7 % (11.7-14.2); RDW Standard Deviation 57.6 fL (35.1-46.3); White Blood Cell Count 5.46 K/mm3 (4.00-11.30)
--- NOTE | 2021-03-20 04:02 | NUR ---
89 year old Female with syncope dizziness was sent over from dialysis for symptomatic with her dialysis. PT is pleasantly confused she is unsure how long she has recieved dialysis, says a long time but not years. Appears to lack support according to day RN who spoke with out of state DTR. PT needs safe DC plan. Up with assist to bathroom has bowel movement. Ogluric PT wears pullup & needs assist with toileting. On tele monitoring with NSR per monitor. Carotid artery study & Echo recently. DNR status. Fall precautions.
[2021-03-20 04:05] LABS: Albumin, Blood 2.2 g/dL (3.4-5.0); Albumin/Globulin Ratio 0.6 (0.8-1.8); Bilirubin, Total 0.3 mg/dL (0.1-1.0); Bun/Creatinine Ratio 14.5 (12.0-20.0); Calcium, Blood 8.4 mg/dL (8.5-10.1); Creatinine, Blood 2.41 mg/dL (0.40-1.00); Globulin, Blood 3.5 g/dL (2.2-4.0); Phosphorus, Blood 4.5 mg/dL (2.5-4.9); Potassium, Blood 4.1 mmol/L (3.5-5.5); Total Protein, Blood 5.7 g/dL (6.4-8.2)
--- NOTE | 2021-03-20 08:59 | NUR ---
The patient gave me permission to help care for her on 03/20/2021.
[2021-03-20] MEDS ORDERED: ACET325 PO (12:03)
[2021-03-20] MEDS ORDERED: ALBU90OI INH (12:04)
[2021-03-20] MEDS ORDERED: CEFD300 PO (12:04)
[2021-03-20] MEDS ORDERED: IMODIUM A-D2 M1 PO (12:05)
--- NOTE | 2021-03-20 12:21 | NUR ---
03/20/21- PER CHART REVIEW WITH DR. RENDON, PT IS AGREEABLE TO GO TO SNF. WILL SEND CHECKLIST FOR SCREENING. PLAN WOULD BE TO D/C TOMORROW. SPOKE WITH PT'S DAUGHTER, SHAHRZAD. DISCUSSED THE RECOMMENDATIONS FROM THERAPY. PT HAS LIVED WITH A FRIEND FOR 32 YRS AND THEY THOUGHT THE PLAN WAS FOR THE PT TO GO TO SNF AND THEN RETURN HOME. EXPLAINED THAT THE THERAPY RECOMMENDATIONS STATE THAT PT SHOULD NOT RETURN HOME, SHE WILL NEED [facility]ACEMENT AT [facility], [facility] OR LONG-TERM CARE FACILITY. DAUGHTER STATES THAT HER MOM'S FRIEND WILL BE VERY UPSET AND COULD BE RESISTANT TO THE PLAN. DAUGHTER WOULD LIKE TO BE ABLE TO SPEAK WITH THE FRIEND AND THEN WE HAVE A CALL TOMORROW WITH THE 3 OF US TO DISCUSS THE D/C PLAN. PROVIDED DAUGHTER WITH NAMES AND CONTACT INFORMATION FOR ALL [facility] FACILITIES IN [place] AND FEW IN OUTLYING AREAS FOR HER TO LOOK UP. UPDATED DR. BAER THAT D/C MAY NOT BE TOMORROW DUE TO HAVING TO ESTABLISH A SAFE D/C PLAN AFTER SNF.-CARLEE
--- NOTE | 2021-03-20 13:04 | NUR ---
DIALYSIS PT BACK FROM RECIEVING DIALYSIS, PT IS ALERT, REPORTS TOLERATING DIALYSIS WELL. CAREGIVER IS AT THE BEDSIDE
--- NOTE | 2021-03-20 18:01 | NUR ---
PT IS A/OX3, PLEASANT AND COOPERATIVE, THE PT IS UP WITH MINIMAL ASSIST. THE PT APPEARS TO BE BREATHING EASILY ON RA AT THIS TIME, THE PT HAD DIALYSIS TODAY AND APPEARS TO HAVE TOLERATED IT WELL, THE PT WORKED WITH PHYSICAL THERAPY THIS AFTERNOON AND AMBULATED IN THE GRAF WITH THE FWW, THE PT DENIED ANY PAIN,N/V, OR SOB T/O THE DAY, CALL LIGHT IN REACH, WILL CONTINUE TO MONITOR AND ASESS FOR CHANGES
--- NOTE | 2021-03-21 04:16 | NUR ---
elderly Female with dementia continues plesant & able to communicate. She has rt chest wall perm cath for dialysis & recieved dialysis yeasterday. She is up with 1 minimal assist to ambulate with fww & BG. Pt frail appearing very thin & eats less than 50% diet. Drank chocolate ensure with set up & cues. Denies pain or acute distress. On tele monitor NSR rate 90s. Forgetful, says she worked at [employer] but does not remember what she did. Needs assist with DC plan.
[2021-03-21 05:10] LABS: Hematocrit 30.4 % (33.0-51.0)
[2021-03-21 05:18] LABS: Albumin, Blood 2.3 g/dL (3.4-5.0); Anion Gap 4 mmol/L (6-16); Blood Urea Nitrogen 32 mg/dL (8-24); Bun/Creatinine Ratio 15.4 (12.0-20.0); CO2, Blood 32 mmol/L (21-32); Calcium, Blood 8.4 mg/dL (8.5-10.1); Chloride, Blood 98 mmol/L (98-108); Creatinine, Blood 2.08 mg/dL (0.40-1.00); Glomerular Filtration Rate 24 (60-); Glucose, Blood 146 mg/dL (70-99); Magnesium, Blood 2.1 mg/dL (1.6-2.4); Phosphorus, Blood 3.2 mg/dL (2.5-4.9); Potassium, Blood 4.4 mmol/L (3.5-5.5); Sodium, Blood 134 mmol/L (136-145)
--- NOTE | 2021-03-21 14:02 | NUR ---
03/21/21-Faxed packet to Sushma for review. Waiting for response. -jose Spoke with Pia who states that they would like Amarilys to come back home with [employer] [place]. Both the pt's daughter and partner feel that she would do better back home. Will submit packet for review. Will notify both daughter and partner on status of referral. -jose Daughter returned call and she says that after talking with pt and her friend, they have decided to have the pt go to SNF and then go home after rehab. Daughter states that she is supports this plan. Daughter states that they have bars in the shower, walker, toilet riser, rides to dialysis by friends Jose and Erinn, . They also have meals on wheels bring them food and support from their adventism friends. Once Amarilys is home, they would like to resume Home Health services with [facility]. Will send packet in for review to Sushma. -jose per chart review with Dr. Lopez, pt is medically stable to d/c. Tried to reach both the pt's daughter and roommate to discuss d/c plan post SNF. LMOM for daughter and roommate did not picking machine operator the phone. Tried to get a hold of [employer] to find out what benefits the pt has, there was no answer. reuben
--- NOTE | 2021-03-21 17:51 | NUR ---
PT IS A/OX3, PLEASANT AND COOPERATIVE, FORGETFULL, PT APPEARS TO BE BREATHING EASILY ON RA AT THIS TIME, PT DENIED ANY PAIN OR NAUSEA T/O THE SHIFT. THE PT WAS UP IN THE GRAF AMBULATING WITH THE PHYSICAL THERAPIST AND BECAME DIZZY, PT TRANSFERD VIA WHEELCHAIR AND BACK TO BED AND DIZZINESS RESOLVED. THE PT HAD A SMALL PELLET FORMED BM TODAY, MOM WAS GIVEN FOR BOWEL CARE, PT HAS A GOOD APPETITE, CALL LIGHT IN REACH, WILL CONTINUE TO MONITOR AND ASSESS FOR CHANGES
[2021-03-22 04:49] LABS: Hematocrit 31.3 % (33.0-51.0); Hemoglobin 10.4 g/dL (11.5-16.0)
[2021-03-22 04:57] LABS: Albumin, Blood 2.3 g/dL (3.4-5.0); Anion Gap 6 mmol/L (6-16); Blood Urea Nitrogen 39 mg/dL (8-24); Bun/Creatinine Ratio 15.7 (12.0-20.0); CO2, Blood 30 mmol/L (21-32); Calcium, Blood 8.6 mg/dL (8.5-10.1); Chloride, Blood 99 mmol/L (98-108); Creatinine, Blood 2.48 mg/dL (0.40-1.00); Glomerular Filtration Rate 19 (60-); Glucose, Blood 115 mg/dL (70-99); Magnesium, Blood 2.2 mg/dL (1.6-2.4); Phosphorus, Blood 3.1 mg/dL (2.5-4.9); Potassium, Blood 4.3 mmol/L (3.5-5.5); Sodium, Blood 135 mmol/L (136-145)
--- NOTE | 2021-03-22 05:21 | NUR ---
89 year old PT with dementia & syncope with dizziness with activity had dizziness with activity yesterday reported. Continued on Tele with SR. PT has incontinent BM after bowel care. Hypertensive with activity. PT denies pain or acute distress. Able to feed self, appears very thin and frail. DC planning continues.
[2021-03-22] MEDS ORDERED: BISA10S PR (15:39)
[2021-03-22] MEDS ORDERED: ENOX30I SC (15:40)
[2021-03-22] MEDS ORDERED: MIRALAX17 GM PO (15:40)
[2021-03-22] MEDS ORDERED: DOCU100 PO (15:40)
[2021-03-22 16:25] LABS: SARS-Cov-2 (COVID-19) PCR, MMC NEGATIVE (NEGATIVE)
--- NOTE | 2021-03-22 17:16 | NUR ---
DISCHARGE SUMMARY PT DISCHARGE TO [facility], TRANSPORTED VIA AMBULANCE SERVICES. REPORT GIVEN TO NURSE VERDUGO. PT A&OX3-4, FORGETFUL AT TIMES, ABLE TO MAKE NEEDS KNOWN. NO ISSUES OR COMPLAINTS NOTED FROM PT PRIOR TO DISCHARGE. NO C/O PAIN OR ANY DISCOMFORT, VSS. PT VERBALIZED UNDERSTANDING OF DISCHARGE ORDERS AND TEACHINGS. PT COVID NEGATIVE, COPY OF RESULT INCLUDED IN D/C PACKET. D/C PACKET GIVEN TO PT. TELE MONITOR AND IV LINE DISCONTINUED UPON DISCHARGE.
== END 2021-03-22 17:11 ==
LOC: ER 18:54 → MEDS 18:55
PROVIDERS: Emergency Medicine; Family Medicine; Hospitalist; Internal Medicine Nephrology; ADMIT Internal Medicine
DX: R55 Syncope and collapse (principal); E11.22 Type 2 diabetes mellitus with diabetic chronic kidney disease; Z20.822 Contact with and (suspected) exposure to COVID-19; I13.2 Hypertensive heart and chronic kidney disease with heart failure and with stage 5 chronic kidney disease, or end stage renal disease; I50.22 Chronic systolic (congestive) heart failure; N18.6 End stage renal disease; F03.90 Unspecified dementia, unspecified severity, without behavioral disturbance, psychotic disturbance, mood disturbance, and anxiety; E87.70 Fluid overload, unspecified; N25.81 Secondary hyperparathyroidism of renal origin; I95.1 Orthostatic hypotension; E78.5 Hyperlipidemia, unspecified; Z99.2 Dependence on renal dialysis; Z66 Do not resuscitate; Z88.2 Allergy status to sulfonamides; Z88.8 Allergy status to other drugs, medicaments and biological substances; Z91.010 Allergy to peanuts
CPT/HCPCS: 36415; 70450; 71046; 80053; 80069; 81001; 82330; 82947; 83735; 83880; 84100; 85014; 85018; 85025; 87086; 93005; 93010; 93308; 93321; 93880; 94640; 94760; 96372; 97110; 97116; 97162; 97165; 97530; 97535; 99285-25; A9270; G0257; G0378; J0881; J1650; J7030; J7060; U0004

== ENCOUNTER 2021-05-04 11:10 | Inpatient (IN) | payer MEDICARE, OTHER ==
[~2021-05-04] VITALS: Ht 170.2 cm; Wt 52.4 kg
[~2021-05-04 11:10] MED LIST changes: +ACET325 PO; +ALBU90OI INH; +BISA10S PR; +DOCU100 PO; +ENOX30I SC; +FURO40; +IMODIUM A-D2 M1 PO; +MIRALAX17 GM PO; +ONDA4ODT MM
[2021-05-04 12:08] LABS: BASOPHILS ABSOLUTE AUTO 0.01 K/mm3 (0.00-0.23); BASOPHILS PERCENT AUTO 0 % (0-2); EOSINOPHILS ABSOLUTE AUTO 0.01 K/mm3 (0.00-0.68); EOSINOPHILS PERCENT AUTO 0 % (0-6); Hemoglobin 9.1 g/dL (11.5-16.0); IMMATURE GRAN ABSOLUTE AUTO 0.31 K/mm3 (0.00-0.10); IMMATURE GRAN PERCENT AUTO 5 % (0-1); LYMPHOCYTES ABSOLUTE AUTO 0.52 K/mm3 (0.84-5.20); LYMPHOCYTES PERCENT AUTO 8 % (21-46); MONOCYTES ABSOLUTE AUTO 0.68 K/mm3 (0.16-1.47); MONOCYTES PERCENT AUTO 11 % (4-13); Mean Corpuscular HGB 29.1 pg (26.0-34.0); Mean Corpuscular HGB Conc 33.7 g/dL (31.5-36.5); Mean Corpuscular Volume 86 fL (80-100); Mean Platelet Volume 10.5 fL (9.1-12.4); NEUTROPHILS PERCENT AUTO 76 % (41-73); Platelet Count 331 K/mm3 (150-400); RDW Coefficient Variation 14.6 % (11.7-14.2); Red Blood Cell Count 3.13 M/mm3 (3.80-5.20); White Blood Cell Count 6.43 K/mm3 (4.00-11.30)
[2021-05-04 12:21] LABS: Albumin, Blood 2.8 g/dL (3.4-5.0); Albumin/Globulin Ratio 0.6 (0.8-1.8); Bilirubin, Total 0.7 mg/dL (0.1-1.0); Bun/Creatinine Ratio 11.3 (12.0-20.0); Calcium, Blood 9.3 mg/dL (8.5-10.1); Creatinine, Blood 3.27 mg/dL (0.40-1.00); Globulin, Blood 4.9 g/dL (2.2-4.0); Total Protein, Blood 7.7 g/dL (6.4-8.2); Troponin I 0.028 ng/mL (0.000-0.040)
[2021-05-04 12:22] LABS: Base Excess Venous 10.7 mmol/L; Bicarbonate Venous 33.8 mmol/L (24.0-30.0); PCO2 Venous 35.6 mmHg (38-42); PO2 Venous 168 mmHg (38-42); pH Blood Venous 7.57 (7.34-7.37)
[2021-05-04] MEDS ORDERED: Rena-Vite Tabl0.8 MG PO (13:07)
--- NOTE | 2021-05-04 19:26 | NUR ---
SHIFT SUMMARY 1640 RECEIVED PT TO RM 337 VIA [place] FROM ER. SLIDE TX TO BED. PT ADMITTED FOR ESRD AND CHF. BIOX IN ER AT 70%. PT PLACED ON 10L OXIMIZER. PT GIVEN LASIX IN ER, BUT MOSTLY INEFFECTIVE PER REPORT. PERMACATH TO RCW. DR DAVIS CONSULTED. COMMUTATOR UNDERCUTTER CALLED IN; PT TO HAVE DIALYSIS IN RM SHORTLY. PT IS VERY PLEASANT, BUT DOES REPORT THAT SHE HAS DEMENTIA AND CAN'T REMEMBER THINGS AT TIMES. REPORT GIVEN TO ONCOMING RN. CALL LT IN REACH.
[2021-05-05 05:28] LABS: BASOPHILS PERCENT AUTO 0 % (0-2); EOSINOPHILS ABSOLUTE AUTO 0.09 K/mm3 (0.00-0.68); EOSINOPHILS PERCENT AUTO 2 % (0-6); Hemoglobin 8.3 g/dL (11.5-16.0); IMMATURE GRAN ABSOLUTE AUTO 0.08 K/mm3 (0.00-0.10); IMMATURE GRAN PERCENT AUTO 2 % (0-1); LYMPHOCYTES ABSOLUTE AUTO 1.03 K/mm3 (0.84-5.20); LYMPHOCYTES PERCENT AUTO 19 % (21-46); MONOCYTES ABSOLUTE AUTO 0.73 K/mm3 (0.16-1.47); MONOCYTES PERCENT AUTO 14 % (4-13); Mean Corpuscular HGB 28.6 pg (26.0-34.0); Mean Corpuscular HGB Conc 33.2 g/dL (31.5-36.5); Mean Corpuscular Volume 86 fL (80-100); Mean Platelet Volume 10.6 fL (9.1-12.4); NEUTROPHILS ABSOLUTE AUTO 3.48 K/mm3 (1.96-9.15); NEUTROPHILS PERCENT AUTO 64 % (41-73); Platelet Count 276 K/mm3 (150-400); RDW Coefficient Variation 14.6 % (11.7-14.2); RDW Standard Deviation 45.2 fL (35.1-46.3); White Blood Cell Count 5.41 K/mm3 (4.00-11.30)
[2021-05-05 05:35] LABS: Albumin, Blood 2.3 g/dL (3.4-5.0); Albumin/Globulin Ratio 0.5 (0.8-1.8); Bilirubin, Total 0.5 mg/dL (0.1-1.0); Bun/Creatinine Ratio 9.9 (12.0-20.0); Calcium, Blood 8.5 mg/dL (8.5-10.1); Creatinine, Blood 2.32 mg/dL (0.40-1.00); Globulin, Blood 4.2 g/dL (2.2-4.0); Potassium, Blood 3.3 mmol/L (3.5-5.5); Total Protein, Blood 6.5 g/dL (6.4-8.2)
--- NOTE | 2021-05-05 06:43 | NUR ---
SHIFT SUMMARY PT IS AN 89 Y/O FEMALE, ADMITTED FOR ESRD. SHE IS A&O X 2, CONFUSED AND FORGETFUL AT TIMES. 1PA STAND AND PIVOT TO THE BSC. NO C/O ACUTE PAIN, NAUSEA OR SOB. VITAL SIGNS STABLE. NO ACUTE CHANGES IN PT CONDITION NOTED DURING THE NIGHT. WILL CONTINUE TO MONITOR AND TREAT PER EMAR UNTIL HAND OFF TO DAY SHIFT RN.
--- NOTE | 2021-05-05 10:14 | NUR ---
DIALYSIS ORDERED BY DR DAVIS TODAY FOR 0900. MED FLOOR STAFF NOTIFIED OF TIME FRAME FOR TREATMENT. PATIENT DELIVERED TO DIALYSIS TREATMENT ROOM AT 1005. ONE UNIT ( 30 MINUTES ) WAIT TIME ASSESSED.
--- NOTE | 2021-05-05 17:01 | NUR ---
PT QUITE PLEASANT TODAY. CONTINUES TO BE CONFUSED. STATES LADY TOLD HER WE ARE WATCHING HER OXYGEN. AND POINTED TO CONT BIOX. SAID SHE TOLD HER NOT TO EAT TOO MUCH . EXPLAINED IS OKAY TO EAT WHAT SHE CAN, NOT TO WORRY. O2 AT 9L AND OX SATS AT 90%. PT WAS ON PHONE EARLIER . DID HAVE DIALYSIS TODAY AND LAST NITE PER PASQUALE NIXON. NO NEW CONCERNS NOTED TODAY. BED IN LOW POSITION, CALL LITE IN REACH. BED ALARMON FOR SAFETY
--- NOTE | 2021-05-05 19:26 | NUR ---
slight elevated temp pt denied feeling chills. does not have any compliants at this time. room temp turned down, extra blankets removed. cool washcloth applied to forehead. bed alarm on, call light within reach, will continue to monitor.
[2021-05-06 05:04] LABS: Hematocrit 26.6 % (33.0-51.0)
[2021-05-06 05:25] LABS: Albumin, Blood 2.4 g/dL (3.4-5.0); Anion Gap 5 mmol/L (6-16); Blood Urea Nitrogen 21 mg/dL (8-24); Bun/Creatinine Ratio 9.6 (12.0-20.0); CO2, Blood 33 mmol/L (21-32); Calcium, Blood 8.6 mg/dL (8.5-10.1); Chloride, Blood 100 mmol/L (98-108); Creatinine, Blood 2.18 mg/dL (0.40-1.00); Glomerular Filtration Rate 23 (60-); Glucose, Blood 78 mg/dL (70-99); Phosphorus, Blood 2.3 mg/dL (2.5-4.9); Potassium, Blood 3.3 mmol/L (3.5-5.5); Sodium, Blood 138 mmol/L (136-145)
--- NOTE | 2021-05-06 05:29 | NUR ---
RANCH SUPERVISOR SUMMARY PT A/O X1 TO SELF. SLEPT WELL TONIGHT WITH INSOMNIA MEDICATION. PT DOES OCCASIONALLY WAKE UP AND PULLS OFF TELE AND O2 OXIMETRY. PT HAS DEMENTIA AT BASELINE. DENIES PAIN AND NAUSEA. PT WAS SWITCHED FROM OXIMYZER TO 12L VIA HIGH FLOW SATTING IN THE LOW 90'S. PT STARTED THE SHIFT WITH 9L O2 VIA OXYMYZER. TELE RUNNING SR IN THE 80;S THIS AM. BED ALARM ON, CALL LIGHT WITHIN REACH, WILL CONTINUE TO MONITOR.
--- NOTE | 2021-05-06 17:37 | NUR ---
SHIFT SUMMARY PT AxOx3-4 WITH OCCASIONAL CONFUSION. PLEASANT AND COOPERATIVE WITH CARE. PT WEANED DOWN TO 5L O2 VIA HIGH FLOW NC. PT WENT FOR REPEAT CXR TODAY AND WAS PLACED ON 1500ML FLUID RESTRICTION. NO DIALYSIS TODAY. PT HAS LOW URINE OUTPUT AT BASELINE. PT HAD BLADDER SCAN TODAY AFTER VOIDING SHOWING 186ML URINE RETENTION. PT REPORTS FEELING VERY SLEEPY TODAY. DECLINED HAVING VISITOR. TELE RUNNING AT SR 82. PT CURRENTLY RESTING IN BED WITH CALL LIGHT IN REACH. VITALS REVIEWED. DENIES ANY NEEDS AT THIS TIME.
--- NOTE | 2021-05-06 23:18 | NUR ---
2001 PT LYING IN BED, DENIES ANY DISCOMFORT AT THIS TIME. TELE NSR AT 74, BS 164. ON 6L O2 NC HUMIDIFIED AT 96%. SCD'S.
--- NOTE | 2021-05-07 03:37 | NUR ---
05/06/21 2200 PT LYING IN BED, EYES CLOSED, APPEARS TO BE RESTING. BREATHING IS EVEN, UNLABORED. NO APPARENT SIGNS OF DISTRESS. CALL LIGHT IS IN REACH. BED ALARM IS ON. 05/07/21 0000 PT LYING IN BED, EYES CLOSED, APPEARS TO BE RESTING. WAKES EASILY TO VERBAL STIMULI. NO APPARENT SIGNS OF DISTRESS. CALL LIGHT IS IN REACH. BED ALARM IS ON.
--- NOTE | 2021-05-07 03:38 | NUR ---
0122 GAVE BUMEX AND SOLUMEDROL PER DR DAVIS'S ORDERS. NO APPARENT SIGNS OF DISTRESS. CALL LIGHT IS IN REACH. BED ALARM IS ON.
--- NOTE | 2021-05-07 03:39 | NUR ---
PT LYING IN BED, EYES CLOSED, APPEARS TO BE RESTING BREATHING IS EVEN, UNLABORED. NO APPARENT SIGNS OF DISTRESS. CALL LIGHT IS IN REACH. BED ALARM IS ON.
--- NOTE | 2021-05-07 04:33 | NUR ---
PT IS AAO X 2-3, ON 6L O2 NC HUMIDIFIED. HAS A FEW SMALL SCATTERED BRUISES AN SCABS ON UE'S AND LE'S. PERMACATH TO RCW. DENIED ANY DISCOMFORT FOR THIS SHIFT. TELE NSR. BS 164. SCD'S.
[2021-05-07 05:37] LABS: BASOPHILS PERCENT AUTO 0 % (0-2); EOSINOPHILS ABSOLUTE AUTO 0.03 K/mm3 (0.00-0.68); EOSINOPHILS PERCENT AUTO 0 % (0-6); Hematocrit 29.4 % (33.0-51.0); Hemoglobin 9.7 g/dL (11.5-16.0); IMMATURE GRAN ABSOLUTE AUTO 0.13 K/mm3 (0.00-0.10); IMMATURE GRAN PERCENT AUTO 2 % (0-1); LYMPHOCYTES ABSOLUTE AUTO 0.41 K/mm3 (0.84-5.20); LYMPHOCYTES PERCENT AUTO 6 % (21-46); MONOCYTES ABSOLUTE AUTO 0.16 K/mm3 (0.16-1.47); MONOCYTES PERCENT AUTO 2 % (4-13); Mean Corpuscular HGB 28.6 pg (26.0-34.0); Mean Corpuscular Volume 87 fL (80-100); Mean Platelet Volume 10.3 fL (9.1-12.4); NEUTROPHILS ABSOLUTE AUTO 5.98 K/mm3 (1.96-9.15); NEUTROPHILS PERCENT AUTO 89 % (41-73); Platelet Count 265 K/mm3 (150-400); RDW Coefficient Variation 14.6 % (11.7-14.2); Red Blood Cell Count 3.39 M/mm3 (3.80-5.20); White Blood Cell Count 6.71 K/mm3 (4.00-11.30)
[2021-05-07 05:48] LABS: Albumin, Blood 2.2 g/dL (3.4-5.0); Albumin/Globulin Ratio 0.5 (0.8-1.8); Bilirubin, Total 0.5 mg/dL (0.1-1.0); Calcium, Blood 8.6 mg/dL (8.5-10.1); Creatinine, Blood 2.55 mg/dL (0.40-1.00); Globulin, Blood 4.5 g/dL (2.2-4.0); Potassium, Blood 4.3 mmol/L (3.5-5.5); Total Protein, Blood 6.7 g/dL (6.4-8.2)
--- NOTE | 2021-05-07 07:36 | NUR ---
PT LYING IN BED, EYES CLOSED, APPEARS TO BE RESTING. BREATHING IS EVEN, UNLABORED. NO APPARENT SIGNS OF DISTRESS. CALL LIGHT IS IN REACH. BED ALARM IS ON. NO OTHER CHANGES THIS SHIFT.
--- NOTE | 2021-05-07 18:44 | NUR ---
SHIFT SUMMARY. A&OX2, PLEASANT AND COOPERATIVE WITH CARE. LUNGS CLEAR, SPO2 TITRATED DOWN TO 3.5L NC. PT DENIES PAIN, SOB, N/V. DIALYSIS COMPLETED THIS AM WITHOUT ISSUE. NO OTHER CHANGES OR CONCERNS.
[2021-05-08 05:13] LABS: Hematocrit 24.6 % (33.0-51.0); Hemoglobin 8.1 g/dL (11.5-16.0)
[2021-05-08 05:46] LABS: Albumin, Blood 2.3 g/dL (3.4-5.0); Anion Gap 6 mmol/L (6-16); Blood Urea Nitrogen 29 mg/dL (8-24); Bun/Creatinine Ratio 14.4 (12.0-20.0); CO2, Blood 31 mmol/L (21-32); Calcium, Blood 8.5 mg/dL (8.5-10.1); Chloride, Blood 100 mmol/L (98-108); Creatinine, Blood 2.02 mg/dL (0.40-1.00); Glomerular Filtration Rate 25 (60-); Glucose, Blood 218 mg/dL (70-99); Magnesium, Blood 2.1 mg/dL (1.6-2.4); Potassium, Blood 3.4 mmol/L (3.5-5.5); Sodium, Blood 137 mmol/L (136-145)
--- NOTE | 2021-05-08 05:49 | NUR ---
SHIFT SUMMARY: PATIENT IS ALERT AND ORIENTED TO SELF ONLY. INC. OF URINE THIS SHIFT. COMPLIANT WITH 1000 ML FLUID RESTRICTION. VSS WITH A LOW GRADE TEMP. OBSERVED AT 0300 VS. NO COMPLIANTS OF PAIN OR DISCOMFORT. BED ALARM IS ON FOR SAFETY.
--- NOTE | 2021-05-08 09:33 | NUR ---
O2 NEEDS PT TITRATED TO 2L THIS AM AND TOLERTED WELL UNTIL THE PT STARTED EATING. WHILE TO PT WAS EATING, 6L O2 WAS REQUIRED TO MAINTAIN SAT OF 90%. PT NOW TITRATED BACK DOWN TO 4L O2 VIA NC.
--- NOTE | 2021-05-08 17:32 | NUR ---
ADMIT: 05/04/21 DISCHARGE: DX: ESRD, Shortness of breath CC: kwilcox ADMIT: 03/17/21 DISCHARGE: 03/22/21 DX: SYNCOPE ADMIT: 01/25/21 DISCHARGE: 01/28/21 DX: ACUTE HYPOXIA RESP. FAILURE OK CALL: RESIDENCE: Home or UVNR CAREGIVER: Pia Silva, Friend, Bertha Browning, Child, DX: Alzheimer's disease, HTN, CKD-stage 4, GERD, see list DME: O2 and equipment, DM supplies CCM: none HOME HEALTH: [facility]- 2020 SUMMARY: 05/08/21- Spoke with daughter on the phone about discharge planning. She reports that they do not want her mom going to SNF as they did this last time she was in the hosptial and her mom did not do well at the facility. She was more confused with her dementia. Daughter states that her mom's baseline is 1-person assists with getting on and off the toilet and up from a seated position. . She has a roommate that is able to help her with her needs. They are aware that her mom is at her end of life and they are just trying to make her as comfortable as possible. She reports that Amjamilah comes out to the home a few times a week to help bath her mom prior to her going into dialysis. Daughter is aware that she is not eligible for hospice at this time due to her still being on dialysis. Daughter reports that her mom has a POA and POLST form. Her mom lives in a single story home with best friend and they having working utilities. They have someone who is able to take her mom to all her appts. Daughter reports that pt has completed both COVID vaccines and these were done in Nov. and Dec. at [facility] pharmacy. When pt is stable for d/c they would like her mom to go back home. -jose
--- NOTE | 2021-05-08 17:59 | NUR ---
SHIFT SUMMARY FAILED ATTEMPTS TO TITRATE PT O2 TODAY. PT REQUIRING 3L O2 WHEN AT REST. 5-6L NEEDED WITH EXERTION. PT WORKED WITH PHYSICAL THERAPY TODAY. SNF RECOMMENDATION. THIS WAS RELAYED TO FLORIDALMA DANIEL LITHOGRAPHIC PRESS OPERATOR APPRENTICE. PT RESTING IN BED. CONT TO BSC T/O DAY. NO OTHER CHANGES IN ASSESSMENT AT THIS TIME. VS REVIEWED. CALL LIGHT IN REACH.
[2021-05-09 05:15] LABS: Hematocrit 26.6 % (33.0-51.0); Hemoglobin 8.8 g/dL (11.5-16.0)
[2021-05-09 05:38] LABS: Albumin, Blood 2.3 g/dL (3.4-5.0); Anion Gap 5 mmol/L (6-16); Blood Urea Nitrogen 41 mg/dL (8-24); Bun/Creatinine Ratio 16.5 (12.0-20.0); CO2, Blood 32 mmol/L (21-32); Calcium, Blood 8.4 mg/dL (8.5-10.1); Chloride, Blood 101 mmol/L (98-108); Creatinine, Blood 2.48 mg/dL (0.40-1.00); Glomerular Filtration Rate 19 (60-); Glucose, Blood 150 mg/dL (70-99); Phosphorus, Blood 3.1 mg/dL (2.5-4.9); Potassium, Blood 3.4 mmol/L (3.5-5.5); Sodium, Blood 138 mmol/L (136-145)
--- NOTE | 2021-05-09 06:39 | NUR ---
SHIFT SUMMARY: PATIENT IS A&O TO SELF ONLY AT NIGHT. NEEDS ENCOURAGEMENT FOR PO FLIUDS. WELL BELOW HER 1000 ML RESTRICTION FOR THE DAY. INC. OF A BOWEL MOVEMENT, SCANT URINE OUTPUT IS OBSERVED. RCW PERMA CATH HAS DSD COVERING. O2 STAT IS 92% ON 2L WHILE SLEEPING BUT PATIENT DESTATS DOWN INTO THE HIGH 70'S ON 4L WITH ACTIVITY. UNAABLE TO TOLERATE RA.
--- NOTE | 2021-05-09 14:37 | NUR ---
05/09/21- PER CHART REVIEW WITH DR. TERRY, PT COULD POTENTIALLY DISCHARGE HOME TOMORROW. BECAUSE PT MAY NEED O2 WHEN SHE DISCHARGES, HOME O2 EVAL WAS ORDERED SO OXYGEN COULD BE ORDERED FOR PT. PT SAW THE PT TODAY AND ARE RECOMMENDING THAT SHE RESUME HOME HEALTH SERVICES AT DISCHARGE. WILL HAVE PUT IN RESUMPTION OF SERVICES AT DISCHARGE. -CARLEE
--- NOTE | 2021-05-09 18:38 | NUR ---
SHIFT SUMMARY NO ACUTE EVENTS THIS SHIFT. BP ELEVATED AT START OF SHIFT, PT REMAINED ON 2.5 L O2 VIA NASAL CANNULA T/O SHIFT. PATIENT WORKED WITH PHYSICAL THERAPY TODAY, UP TO CHAIR. DIALYSIS DONE AT BEDSIDE THIS SHIFT. THIS RN PROVIDED PT WITH INCENTIVE SPIROMETER AND PROVIDED EDUCATION. PT REMAINS IN CONTINENT, ASSISTED WITH BRIEF CHANGES AND REPOSITIONING T/O SHIFT BY NURSING STAFF.
--- NOTE | 2021-05-10 04:15 | NUR ---
SHIFT SUMMARY NO ACUTE CHANGES THIS EVENING. PT ON 3 L VIA NC WITH O2 SATS IN THE MID 90'S. TELE READING SR IN THE 'S. CBG 221 WITH NO COVERAGE INDICATED. PERMACATH TO R CHEST WALL. PT PLEASANTLY CONFUSED. OLIGURIC. NO COMPLAINTS OF PAIN. VITAL SIGNS STABLE. PT HAD AN UNEVENTFUL NIGHT. WILL CONTINUE TO MONITOR.
[2021-05-10 09:32] LABS: Bun/Creatinine Ratio 13.6 (12.0-20.0); Calcium, Blood 8.4 mg/dL (8.5-10.1); Creatinine, Blood 2.13 mg/dL (0.40-1.00); Potassium, Blood 3.6 mmol/L (3.5-5.5)
[2021-05-10 10:12] LABS: Magnesium, Blood 1.9 mg/dL (1.6-2.4)
[2021-05-10 10:13] LABS: Potassium, Blood 3.6 mmol/L (3.5-5.5)
--- NOTE | 2021-05-10 13:46 | NUR ---
05/10/21- Updated daughter, called Erinn to pick pt up and LMOM. [place] will deliver O2 to the hospital for pt to take at d/c and wheelchair will be delivered to pt's home. -jose
[2021-05-10] MEDS ORDERED: ALDACTONE25 MG PO (14:54)
--- NOTE | 2021-05-10 17:36 | NUR ---
DISCHARGE SUMMARY PATIENT DISCHARGED TO HOME. PATIENT ALERT TO SELF THIS SHIFT. PATIENT FRIENDLY AND COOPERATIVE WITH CARE. PATIENT'S FRIEND PROVIDING TRANSPORTATION HOME. PATIENT LIVES WITH ROOMMATE WHO HELPS PROVIDE CARE. PATIENT DISCHARGED ON 4L O2 PER HOME O2 EVALUATION. IV REMOVED PRIOR TO DISCHARGE. PATIENT'S FRIEND PRESENT FOR DISCHARGE INSTRUCTIONS. QUESTIONS ANSWERED TO PATIENT AND FRIEND'S SATISFACTION. PATIENT TO VEHICLE VIA WHEELCHAIR. FRIEND STATES THEY HAVE A WHEELCHAIR WHICH THEY USE TO PROVIDE TRANSPORATION TO AND FROM THE VEHICLE. PATIENT BELONGINGS WITH PATIENT UPON DISCHARGE.
== END 2021-05-10 17:25 | disposition home or self-care (01) | DRG 291 ==
LOC: ER 11:10 → MEDS 11:11
PROVIDERS: Emergency Medicine; Internal Medicine; Internal Medicine Nephrology; ADMIT Internal Medicine
PROC: 5A1D70Z Performance of Urinary Filtration, Intermittent, Less than 6 Hours Per Day (ICD-10-PCS; principal; 2021-05-04)
DX: I13.2 Hypertensive heart and chronic kidney disease with heart failure and with stage 5 chronic kidney disease, or end stage renal disease (principal); N18.6 End stage renal disease; I50.43 Acute on chronic combined systolic (congestive) and diastolic (congestive) heart failure; J96.01 Acute respiratory failure with hypoxia; E87.1 Hypo-osmolality and hyponatremia; E11.22 Type 2 diabetes mellitus with diabetic chronic kidney disease; D63.1 Anemia in chronic kidney disease; E78.5 Hyperlipidemia, unspecified; E88.09 Other disorders of plasma-protein metabolism, not elsewhere classified; Z88.2 Allergy status to sulfonamides; Z66 Do not resuscitate; Z91.010 Allergy to peanuts; Z88.8 Allergy status to other drugs, medicaments and biological substances; Z98.890 Other specified postprocedural states; Z79.899 Other long term (current) drug therapy; Z99.2 Dependence on renal dialysis; Z79.82 Long term (current) use of aspirin; E87.6 Hypokalemia; F03.90 Unspecified dementia, unspecified severity, without behavioral disturbance, psychotic disturbance, mood disturbance, and anxiety; E83.39 Other disorders of phosphorus metabolism
CPT/HCPCS: 36415; 71046; 80048; 80053; 80069; 82803; 82947; 83735; 83880; 84132; 84484; 85014; 85018; 85025; 85379; 93005; 93010; 94667; 94760; 94761; 94762; 96374; 97110; 97116; 97162; 97530; 99285-25; A9270; G0378; J1644; J1940; J2930

== ENCOUNTER 2021-05-29 12:06 | Inpatient (IN) | payer MEDICARE, OTHER ==
[~2021-05-29] VITALS: Ht 170.2 cm; Wt 54.4 kg
[~2021-05-29 12:06] MED LIST changes: +ALDACTONE25 MG PO; +Rena-Vite Tabl0.8 MG PO
[2021-05-29 12:34] LABS: BASOPHILS PERCENT AUTO 0 % (0-2); EOSINOPHILS PERCENT AUTO 0 % (0-6); Hematocrit 24.5 % (33.0-51.0); Hemoglobin 8.3 g/dL (11.5-16.0); IMMATURE GRAN ABSOLUTE AUTO 0.16 K/mm3 (0.00-0.10); IMMATURE GRAN PERCENT AUTO 2 % (0-1); LYMPHOCYTES ABSOLUTE AUTO 0.54 K/mm3 (0.84-5.20); LYMPHOCYTES PERCENT AUTO 7 % (21-46); MONOCYTES ABSOLUTE AUTO 1.55 K/mm3 (0.16-1.47); MONOCYTES PERCENT AUTO 19 % (4-13); Mean Corpuscular HGB Conc 33.9 g/dL (31.5-36.5); Mean Corpuscular Volume 86 fL (80-100); Mean Platelet Volume 11.3 fL (9.1-12.4); NEUTROPHILS ABSOLUTE AUTO 6.03 K/mm3 (1.96-9.15); NEUTROPHILS PERCENT AUTO 73 % (41-73); Platelet Count 230 K/mm3 (150-400); RDW Coefficient Variation 15.2 % (11.7-14.2); RDW Standard Deviation 46.8 fL (35.1-46.3); Red Blood Cell Count 2.86 M/mm3 (3.80-5.20); White Blood Cell Count 8.28 K/mm3 (4.00-11.30)
[2021-05-29 13:02] LABS: Troponin I 0.207 ng/mL (0.000-0.040)
[2021-05-29 13:04] LABS: Albumin, Blood 2.9 g/dL (3.4-5.0); Albumin/Globulin Ratio 0.6 (0.8-1.8); Bilirubin, Total 1.3 mg/dL (0.1-1.0); Bun/Creatinine Ratio 14.8 (12.0-20.0); Calcium, Blood 9.7 mg/dL (8.5-10.1); Creatinine, Blood 3.31 mg/dL (0.40-1.00); Globulin, Blood 4.5 g/dL (2.2-4.0); Potassium, Blood 4.5 mmol/L (3.5-5.5); Total Protein, Blood 7.4 g/dL (6.4-8.2)
[2021-05-29 13:39] LABS: Base Excess Venous 7.4 mmol/L; Bicarbonate Venous 30.7 mmol/L (24.0-30.0); PCO2 Venous 40.1 mmHg (38-42); pH Blood Venous 7.49 (7.34-7.37)
[2021-05-29 14:05] LABS: SARS-Cov-2 (COVID-19) PCR, MMC NEGATIVE (NEGATIVE)
--- NOTE | 2021-05-29 18:36 | NUR ---
PT WAS ADMITTED AT 1515 TODAY. SHE IS A/O TO SELF. DOES NOT ANSWER ANY OTHER ORIENTATION QUESTIONS. PT HAS DEMENTIA. CAREGIVER THAT ACCOMPANIES PT STATES SHE HELPS GET HER TO APPOINTMENTS BUT ALSO HAS A INSTRUCTOR BALLROOM DANCING WELL. PT'S DAUGHTER DORCAS IS COMING UP FROM [place] AND A SON MALU IS HERE TO SEE HER NOW. PT IS ON BIPAP 12/6 FIO2 INCREASED TO 75% WHEN PT ARRIVES TO UNIT. PT IS TOLERATING THE BIPAP WELL. HAS DIALYSIS PERMACATH TO [facility]. PT IS GETTING DIALYSIS NOW. DR. DAVIS AND DR. RENDON CAME TO SEE PT. PT IS FRAIL. HAS SMALL OPEN AREA TO COCCYX THAT MEPILEX WAS PLACED OVER. PHOTO ON CHART. NO SIGN OF DISTESS NOW.
--- NOTE | 2021-05-29 23:31 | NUR ---
PT WAS TAKEN OFF OF THE BIPAP AND PLACED ON 10L VIA NC WHILE TAKING PO MEDICATION/SIPS OF WATER. SPO2 REMAINED >94%, RESP 25-34 WHILE BEING CLEANED UP IN BED. PT WOULD HOLD HER BREATH WHILE BEING ROLLED. BIPAP MASK PLACED BACK ON PT AFTER REPOSITIONING, BIPAP 12/6 FIO2 75%. CALL LIGHT IN REACH.
[2021-05-30 03:20] LABS: BASOPHILS PERCENT AUTO 0 % (0-2); EOSINOPHILS PERCENT AUTO 0 % (0-6); Hematocrit 20.8 % (33.0-51.0); IMMATURE GRAN ABSOLUTE AUTO 0.06 K/mm3 (0.00-0.10); IMMATURE GRAN PERCENT AUTO 2 % (0-1); LYMPHOCYTES ABSOLUTE AUTO 0.27 K/mm3 (0.84-5.20); LYMPHOCYTES PERCENT AUTO 9 % (21-46); MONOCYTES ABSOLUTE AUTO 0.29 K/mm3 (0.16-1.47); MONOCYTES PERCENT AUTO 9 % (4-13); Mean Corpuscular HGB 29.4 pg (26.0-34.0); Mean Corpuscular HGB Conc 33.7 g/dL (31.5-36.5); Mean Corpuscular Volume 87 fL (80-100); Mean Platelet Volume 10.6 fL (9.1-12.4); NEUTROPHILS ABSOLUTE AUTO 2.48 K/mm3 (1.96-9.15); NEUTROPHILS PERCENT AUTO 80 % (41-73); Platelet Count 176 K/mm3 (150-400); RDW Coefficient Variation 15.4 % (11.7-14.2); RDW Standard Deviation 47.7 fL (35.1-46.3); Red Blood Cell Count 2.38 M/mm3 (3.80-5.20)
[2021-05-30 03:38] LABS: Magnesium, Blood 2.2 mg/dL (1.6-2.4)
[2021-05-30 03:39] LABS: Albumin, Blood 2.5 g/dL (3.4-5.0); Albumin/Globulin Ratio 0.6 (0.8-1.8); Bilirubin, Total 0.8 mg/dL (0.1-1.0); Bun/Creatinine Ratio 15.7 (12.0-20.0); Calcium, Blood 8.8 mg/dL (8.5-10.1); Creatinine, Blood 2.49 mg/dL (0.40-1.00); Potassium, Blood 4.2 mmol/L (3.5-5.5); Total Protein, Blood 6.5 g/dL (6.4-8.2)
--- NOTE | 2021-05-30 06:44 | NUR ---
SHIFT SUMMARY PT REMAINS ON BIPAP THIS AM, SURRENT SETTINGS ARE 12/6 FIO2 45%, PT HAS TOLERATED BREAKS WITH O2 VIA NC. PT HAS HAD SMALL SIPS OF WATER THROUGH THE NIGHT WITH NO PROBLEMS. DIALYSIS WAS DONE AT THE BEDSIDE AFTER ARRIVAL TO THE UNIT. PT IS ALERT WITH BASELINE CONFUSION. SHE DENIES CP, STATES HER BREATHING IS "GETTING EASIER". PT'S CHILDREN WERE IN TO VISIT. NO OTHER ACUTE CHANGES NOTED, VSS, SPO2 >94%, Q2 TURNS, CALL LIGHT IN REACH.
[2021-05-30 09:09] LABS: HBSAG SCREEN Negative (Negative); HEP A AB, IGM Negative (Negative); HEP B CORE AB, IGM Negative (Negative); HEP C VIRUS AB 0.2 (0.0-0.9)
--- NOTE | 2021-05-30 09:50 | NUR ---
PT RESTING IN BED. ON BREAK FROM BIPAP WITH 5L NC AND TOLERATING WELL. EATING SOME BREAKFAST. ABLE TO TAKE PILLS WHOLE WITH WATER WITHOUT DIFFICULTY. PT WAS DOWNGRADED TO PCU STATUS. WILL BE GETTING DIALYSIS TODAY. NO SIGN OF DISTRESS. DAUGHTER DORCAS UPDATED VIA PHONE.
--- NOTE | 2021-05-30 13:32 | NUR ---
PT RESTING IN BED. NO ACUTE CHANGES. WILL BE TRANSFERING TO PCU 16. REPORT GIVEN TO LYNETTE NIXON WHO WILL ASSUME CARE.
--- NOTE | 2021-05-30 14:25 | NUR ---
ASSUMED CARE PT ALERT AND ORIENTED TO SELF AND PLACE. SMOKE JUMPER SUPERVISOR IN ROOM WHEN PT ARRIVES AND INTIATES TREATMENT. PT ORIENTED TO ROOM AND CALL LIGHT. WILL CONTINUE TO MONITOR CLOSELY. SON AT BEDSIDE.
--- NOTE | 2021-05-30 17:06 | NUR ---
Multiple admissions this year. DAUGHTER DORCAS [phone] RESIDENCE: HOME OR NRCAREGIVER: OLEG CASTANO, FRIEND, RTBXE HARTFORD, CHILD, DME: O[employer] AND EQUIPMENT, DM SUPPLIES CCM: NONE HOME HEALTH: [facility]- 2020 Update 05/30/21: Pt. not yet appropriate for discharge. PT unable to provide assessment as pt. was in dialysis.
--- NOTE | 2021-05-30 17:26 | NUR ---
SHIFT SUMMARY PT ALERT AND ORIENTED TO SELF, PLACE AND FAMILY. MILD CONFUSION NOTED AT TIMES. BED ALARM ON FOR SAFETY. O2 SATS REMAIN ABOVE 90% ON 4L NC. HR NSR WITH PAC AND PVC. PT DENIES ANY PAIN. PT HAD DIALYSIS SOON SHE ARRIVED TO UNIT AND HAS BEEN RESTING COMFORTABLY SINCE. DAUGHTER AT BEDSIDE. WILL CONTINUE TO MONITOR CLOSELY.
--- NOTE | 2021-05-30 23:07 | NUR ---
CALL TO DR CHAUDHARY THIS RN DISCUSSES DR HEDRICK'S ORDERS W/DR CHAUDAHRY. ORDER TO CONTINUE W/HEPARIN SC ORDERED GIVEN.
[2021-05-31 03:46] LABS: BASOPHILS PERCENT AUTO 0 % (0-2); EOSINOPHILS PERCENT AUTO 0 % (0-6); Hematocrit 22.1 % (33.0-51.0); Hemoglobin 7.3 g/dL (11.5-16.0); IMMATURE GRAN ABSOLUTE AUTO 0.08 K/mm3 (0.00-0.10); IMMATURE GRAN PERCENT AUTO 2 % (0-1); LYMPHOCYTES ABSOLUTE AUTO 0.29 K/mm3 (0.84-5.20); LYMPHOCYTES PERCENT AUTO 6 % (21-46); MONOCYTES ABSOLUTE AUTO 0.62 K/mm3 (0.16-1.47); MONOCYTES PERCENT AUTO 12 % (4-13); Mean Corpuscular HGB 28.5 pg (26.0-34.0); Mean Corpuscular Volume 86 fL (80-100); Mean Platelet Volume 10.9 fL (9.1-12.4); NEUTROPHILS ABSOLUTE AUTO 4.12 K/mm3 (1.96-9.15); NEUTROPHILS PERCENT AUTO 81 % (41-73); NRBC ABSOLUTE 0.02 K/mm3 (0.00-0.02); NRBC Auto 0.4 /100 WBC (0.0-0.2); Platelet Count 186 K/mm3 (150-400); RDW Coefficient Variation 15.2 % (11.7-14.2); RDW Standard Deviation 46.8 fL (35.1-46.3); Red Blood Cell Count 2.56 M/mm3 (3.80-5.20); White Blood Cell Count 5.11 K/mm3 (4.00-11.30)
[2021-05-31 04:06] LABS: Albumin, Blood 2.7 g/dL (3.4-5.0); Albumin/Globulin Ratio 0.7 (0.8-1.8); Bilirubin, Total 0.7 mg/dL (0.1-1.0); Bun/Creatinine Ratio 17.5 (12.0-20.0); Calcium, Blood 8.8 mg/dL (8.5-10.1); Creatinine, Blood 2.11 mg/dL (0.40-1.00); Globulin, Blood 4.1 g/dL (2.2-4.0); Magnesium, Blood 2.2 mg/dL (1.6-2.4); Phosphorus, Blood 4.7 mg/dL (2.5-4.9); Potassium, Blood 3.8 mmol/L (3.5-5.5); Total Protein, Blood 6.8 g/dL (6.4-8.2)
--- NOTE | 2021-05-31 07:54 | NUR ---
SHIFT SUMMARY PT AOX2, BREATHING SHALLOW AND UNLABORED THROUGH SHIFT. PT DESAT W/REPOSITIONING AND CHANGING BRIEFS OF X1 SOFT BM. SATS DOWN TO 80'S ON 4 L VIA NC. THIS RN TITRATES PT UP TO 5 L. SATS MAINTAIN THROUGH MOST OF SHIFT >92% ON 5 L VIA NC. PT OTHERWISE SLEEPS RESTFULLY W/NO C/O THROUGH SHIFT. IV SALINE LOCKED. DRESSING REINFORCED TO L WRIST FOR SKIN TEAR PRESENT PRIOR TO TRANSFER TO PCU. SINUS 60'S-70'S. PLAN TO ADMIN X1 UNIT OF [facility] W/DIALYSIS TODAY D/T LOW HGB OF 7.0-7.2.
--- NOTE | 2021-05-31 12:10 | NUR ---
DIALYSIS UNABLE TO BRING THE HD ORDER SET UP ON THE COMPUTER. WE PUT THE ON, THEN CALLED IT SUPPORT. I PUT THE ORDER IN WHEN THE PROGRAM WAS UP.
--- NOTE | 2021-05-31 13:10 | NUR ---
TRANSFER PT WAS ORIENTED TO SELF THIS MORNING, PT DID NOT KNOW THE DATE, TIME OR HER LOCATION. PT IS VERY PLESANT AND WAS NOT TRYING TO GET OUT OF BED AT ALL. PT LEFT FOR DIALYSIS THIS MORNING AND THEN MOVED TO MEDICAL FLOOR FOLLOWING DIALYSIS AT APPROXIMATELY 1300. PT WAS MOVED WITH MEDICATIONS AND PERSONAL BELONGINGS. HUSSAIN KNAPP ADMINISTERED HER 1130 INSULIN PRIOR TO HER TRANSFER. REPORT GIVEN TO CARSON LESLIE
--- NOTE | 2021-05-31 17:27 | NUR ---
PT CBG 400. DISCUSSED WITH DR RENDON. ORDERS FOR 7 UNITS LANTUS ONCE, NOW. ADJUST SHORT ACTING INSULIN TO 5 UNITS THIS ONCE. RE-EVAL IN AM. PT FAMILY BRINGING IN LINAGLIPTIN TOMORROW FOR AM DOSE.
--- NOTE | 2021-05-31 18:22 | NUR ---
PT PLEASANT SINCE TRANSFER FROM PCU AND DIALYSIS. WAS NOTIFIED OF CBG OF 400. MEDS ALTERED FOR TOMMIE INSULIN. PT IS QUITE CONFUSED, RECOGNIZED SONS WHEN THEY WERE IN. ALSO, FAMILY TO BRING IN THE DIABETIC ORAL MED TONITE OR TOMORROW FOR PT USE. PT DID HAVE LOOSE STOOL TODAY. NO NEW CONCERNS NOTED THIS AFTERNOON. BED IN LOW OSITION, CALL LITE IN REACH, BED ALARM ON FOR SAFETY.
--- NOTE | 2021-05-31 19:00 | NUR ---
Update 05/31/2021: Discussed discharge planning and coordination with pt. and her sons. Pt. is in need of additional assistance in the home setting. Pt. has been receiving dialysis 2-3 times a week. She has been hospitalized multiple times over the past few months. The family states that they understanding they are nearing the end of her life and their main concern is her comfort. Dr. Tabor had noted that hospice should be a consideration. Per chart review with Dr. Lopez, pt. would required dialysis 3 x weekly post discharge. Discussed with pt. and family hospice as an option. I did advise them that dialysis would be D/C if they do choose hospice. Family is open to discussing hospice more depth. Discussed further with Dr. Lopez and requested palliative care consult. See additional palliative care notes. Pt. likely appropriate for discharge tomorrow. Family will talk together and determine if they would like to move forward with hospice services.
--- NOTE | 2021-05-31 19:25 | NUR ---
ASSUMED CARE RECEIVED REPORT FROM HUSSAIN BYRD. PT RESTING, IN NAD. NO ACUTE NEEDS ASSESSED AT THIS TIME. CALL LIGHT, POSSESSIONS IN REACH, BED IN LOW AND LOCKED POSITION WITH ALARMS ON.
--- NOTE | 2021-06-01 04:40 | NUR ---
RESTORATIVE REHAB AIDE SUMMARY PT RESTING, IN NAD. VS REVIEWED,WNL. NO ACUTE CONCERNS TO REPORT OVERNIGHT, APPEARED TO SLEEP WELL. DENIES PAIN OR DISCOMFORT. O2 SATS STABLE ON 4L/NC, DENIES SOB, DYSPNEA. PERMACATH TO [facility]W C/D/I, NO DRAINAGE OR BLEEDING NOTED. PT DENIES NEEDS AT THIS TIME. CALL LIGHT AND POSSESSIONS IN REACH, BED IN LOW AND LOCKED POSITION WITH ALARMS ON. WILL CONTINUE TO PROVIDE CARE UNTIL REPORT GIVEN TO ONCOMING RN.
[2021-06-01 05:01] LABS: BASOPHILS ABSOLUTE AUTO 0.01 K/mm3 (0.00-0.23); BASOPHILS PERCENT AUTO 0 % (0-2); EOSINOPHILS ABSOLUTE AUTO 0.01 K/mm3 (0.00-0.68); EOSINOPHILS PERCENT AUTO 0 % (0-6); Hematocrit 28.4 % (33.0-51.0); Hemoglobin 9.7 g/dL (11.5-16.0); IMMATURE GRAN ABSOLUTE AUTO 0.19 K/mm3 (0.00-0.10); IMMATURE GRAN PERCENT AUTO 2 % (0-1); LYMPHOCYTES ABSOLUTE AUTO 0.92 K/mm3 (0.84-5.20); LYMPHOCYTES PERCENT AUTO 8 % (21-46); MONOCYTES ABSOLUTE AUTO 1.51 K/mm3 (0.16-1.47); MONOCYTES PERCENT AUTO 14 % (4-13); Mean Corpuscular HGB 28.4 pg (26.0-34.0); Mean Corpuscular HGB Conc 34.2 g/dL (31.5-36.5); Mean Corpuscular Volume 83 fL (80-100); Mean Platelet Volume 11.2 fL (9.1-12.4); NEUTROPHILS ABSOLUTE AUTO 8.48 K/mm3 (1.96-9.15); NEUTROPHILS PERCENT AUTO 76 % (41-73); NRBC ABSOLUTE 0.03 K/mm3 (0.00-0.02); NRBC Auto 0.3 /100 WBC (0.0-0.2); Platelet Count 194 K/mm3 (150-400); RDW Coefficient Variation 15.8 % (11.7-14.2); RDW Standard Deviation 47.3 fL (35.1-46.3); Red Blood Cell Count 3.42 M/mm3 (3.80-5.20); White Blood Cell Count 11.12 K/mm3 (4.00-11.30)
[2021-06-01 05:33] LABS: Albumin, Blood 2.8 g/dL (3.4-5.0); Albumin/Globulin Ratio 0.6 (0.8-1.8); Bilirubin, Total 0.8 mg/dL (0.1-1.0); Bun/Creatinine Ratio 21.1 (12.0-20.0); Calcium, Blood 9.1 mg/dL (8.5-10.1); Creatinine, Blood 2.84 mg/dL (0.40-1.00); Globulin, Blood 4.5 g/dL (2.2-4.0); Potassium, Blood 3.9 mmol/L (3.5-5.5); Total Protein, Blood 7.3 g/dL (6.4-8.2)
[2021-06-01] MEDS ORDERED: PROSOL (11:10)
[2021-06-01] MEDS ORDERED: CENTRUM SILVER1 EAC2 PO (11:17)
[2021-06-01] MEDS ORDERED: RENAL VITAMIN0.8 MG PO (11:18)
[2021-06-01] MEDS ORDERED: VITAMIN D325 MC3 PO (11:18)
--- NOTE | 2021-06-01 15:18 | NUR ---
Met with pt and her daughter today. Met with pt and her 2 sons last evening with daughter Bertha on the phone. Today as both Bertha and patient in person. Until last night, the family had been considering rehab vs returning home. However, rehab is now off the table as pt was honest about not wanting to go again. It's also become very clear that pt is unable to return home with her room mate without a hired caregiver, as roommate also has health challenges of her own. Family will likely need to hire CG's for pt for the time being, as they are not willing to entertain the thought of hospice at this time.
--- NOTE | 2021-06-01 16:24 | NUR ---
Update 05/31/21 / 06/01/21: Requested palliative care to meet with pt. to discuss comfort care. Palliative care met with pt. and son's with daughter present on phone. See palliative notes. Family having a difficult time making the decision to discontinue dialysis for hospice services. Patient will be receiving dialysis likely 3 times a week at time of discharge. At this time family is agreeable to [facility] services through [facility] and caregiver within the home. Family given caregiver packet with name and phone numbers of caregivers within the area, resources for financial assistance, and information regarding life alert. Pt. would like to return home. Family will assist within the home setting until caregiver in place. I will fax face sheet and H&P to [facility]. Discharge paperwork will need to be faxed to [facility].
--- NOTE | 2021-06-01 18:21 | NUR ---
PT PLEASANT TODAY. IS FORGETFUL. ORIENTED X2-3 FAMILY IN TO VISIT TODAY. FAMILY BROUGHT IN HOME MED. SCANNED AND PLACED IN DRAWER. DR ARREDONDO DID COME SEE PT FAMILY. NO NEW CONCERNS NOTED. BED IN LOW POSITION, CALL LITE IN REACH, BED ALARM ON FOR SAFETY
[2021-06-02 04:52] LABS: Hematocrit 26.7 % (33.0-51.0); Hemoglobin 8.9 g/dL (11.5-16.0)
--- NOTE | 2021-06-02 04:55 | NUR ---
SHIFT SUMMARY PT PLEASANTLY CONFUSED. HAD AN UNEVENTFUL NIGHT. SLEPT MOST OF THE NIGHT. REMAINED ON 4 L WITH O2 SATS IN THE MID 90'S. NO COMPLAINTS OF SOB. PT INCONTINENT. LOW URINE OUTPUT. PERMACATH NOTED TO R CHEST WALL. PT THIN AND FRAIL. MEPILEX TO COCCYX REMAINED INTACT. PER REPORT PT HAS SMALL DIME SIZED SORE BENEATH. NOT VISUALIZED BY THIS RN. NO ACUTE CHANGES THIS EVENING. VITAL SIGNS STABLE. WILL CONTINUE TO MONITOR.
[2021-06-02 05:10] LABS: Albumin, Blood 2.3 g/dL (3.4-5.0); Anion Gap 9 mmol/L (6-16); Blood Urea Nitrogen 81 mg/dL (8-24); Bun/Creatinine Ratio 22.1 (12.0-20.0); CO2, Blood 29 mmol/L (21-32); Calcium, Blood 8.3 mg/dL (8.5-10.1); Chloride, Blood 94 mmol/L (98-108); Creatinine, Blood 3.66 mg/dL (0.40-1.00); Glomerular Filtration Rate 12 (60-); Glucose, Blood 202 mg/dL (70-99); Magnesium, Blood 2.2 mg/dL (1.6-2.4); Phosphorus, Blood 4.3 mg/dL (2.5-4.9); Potassium, Blood 4.2 mmol/L (3.5-5.5); Sodium, Blood 132 mmol/L (136-145)
--- NOTE | 2021-06-02 17:29 | NUR ---
SHIFT SUMMARY- PT IS ALERT, PLESANT AND COOPERATVIE. SHE SLEPT FOR MUCH OF THIS SHIFT. SHE WENT FOR DIALYSIS THIS AFTERNOON. SHE IS EATNG AND DRINKING WELL. SHE HAD AN INC BM THIS SHIFT. HER SON WAS AT BEDSIDE THIS SHIFT. HER BED IS IN THE LOW POSITION AND CALL LIGHT IS WITHIN REACH.
[2021-06-03 05:03] LABS: Hematocrit 29.3 % (33.0-51.0); Hemoglobin 9.6 g/dL (11.5-16.0)
--- NOTE | 2021-06-03 05:19 | NUR ---
SHIFT SUMMARY PT HAD AN UNEVENTFUL NIGHT. SLEPT WELL. TURNED O2 SATURATIONS DOWN TO 3 L FROM 4 L. PT TOLERATING WELL WITH O2 SATS IN THE MID 90'S. PT DENIES ANY SOB OR PAIN. PT IS CACHECTIC. MEPILEX TO BOTTOM. PT PLEASANTLY CONFUSED. A/O X 2. REMAINED IN BED THROUGHOUT THE NIGHT. INCONTINENT. HAD A SMALL SOFT BM THIS EVENING. URINE OUTPUT LOW. VITAL SIGNS STABLE. WILL CONTINUE TO MONITOR.
[2021-06-03 05:40] LABS: Albumin, Blood 2.3 g/dL (3.4-5.0); Anion Gap 6 mmol/L (6-16); Blood Urea Nitrogen 55 mg/dL (8-24); Bun/Creatinine Ratio 18.8 (12.0-20.0); CO2, Blood 31 mmol/L (21-32); Calcium, Blood 8.4 mg/dL (8.5-10.1); Chloride, Blood 99 mmol/L (98-108); Creatinine, Blood 2.93 mg/dL (0.40-1.00); Glomerular Filtration Rate 15 (60-); Glucose, Blood 216 mg/dL (70-99); Magnesium, Blood 2.2 mg/dL (1.6-2.4); Phosphorus, Blood 3.5 mg/dL (2.5-4.9); Potassium, Blood 3.7 mmol/L (3.5-5.5); Sodium, Blood 136 mmol/L (136-145)
[2021-06-04 04:48] LABS: Hematocrit 28.4 % (33.0-51.0); Hemoglobin 9.1 g/dL (11.5-16.0)
[2021-06-04 05:10] LABS: Albumin, Blood 2.3 g/dL (3.4-5.0); Anion Gap 8 mmol/L (6-16); Blood Urea Nitrogen 48 mg/dL (8-24); Bun/Creatinine Ratio 19.2 (12.0-20.0); CO2, Blood 28 mmol/L (21-32); Calcium, Blood 8.3 mg/dL (8.5-10.1); Chloride, Blood 97 mmol/L (98-108); Glomerular Filtration Rate 18 (60-); Glucose, Blood 209 mg/dL (70-99); Magnesium, Blood 2.1 mg/dL (1.6-2.4); Phosphorus, Blood 2.9 mg/dL (2.5-4.9); Potassium, Blood 3.7 mmol/L (3.5-5.5); Sodium, Blood 133 mmol/L (136-145)
--- NOTE | 2021-06-04 05:11 | NUR ---
SHIFT SUMMARY PT HAD AN UNEVENTFUL NIGHT. SLEPT MUCH OF THE NIGHT. HAD ANOTHER SMALL BOWEL MOVEMENT THIS EVENING. PT PLEASANTLY CONFUSED. COOPERATIVE WITH CARE. MEPILEX TO BOTTOM REMAINED INTACT. PT CACHECTIC, VERY DECONDITIONED. REPOSITIONED WITH PILLOWS REGULARLY. VITAL SIGNS STABLE. PT ON 3 L VIA NC. O2 SATS IN THE MID TO HIGH 90'S. NO ACUTE CHANGES THIS EVENING. WILL CONTINUE TO MONITOR.
--- NOTE | 2021-06-04 16:33 | NUR ---
Update 06/04/21: Per chart review with Dr. Urbano this am, pt. will be appropriate for discharge once appropriate discharge plan in place. The family met over the weekend and decided that they would like the pt. to go into an assisted living facility. They feel that she is need power sweeper operator assistance. Pt. in the room while I discussed the assisted living facility with the patient's daughter. Pt. is agreeable at this time. They are still declining hospice at this time. The daughter stated that they would like pt. to make the decision on when she is ready to D/C dialysis to go on hospice. Palliative care has discussed with the family the benefits of hospice care. They would like to request HHC within a facility with the possibility of transitioning to hospice later on. I have reached out to the following assisted living facilities that would be able to provide a high enough level of care: [facility] - reviewing [facility] - possible assessment tomorrow at 10 - 10:[address] [facility] - reviewing (likely to be wait list) [facility] - Not accepting patients (no available beds) [facility] - under consideration (family would have to transport pt. to dialysis weekly) they will likely provide an assessment tomorrow if family is agreeable to terms. I will discuss further with the patients family.
--- NOTE | 2021-06-04 18:24 | NUR ---
NO ACUTE CHANGES TO PATIENT. DAUGHTER AT BEDSIDE. PT IS PLEASANTLY CONFUSED . SHE IS ABLE TO EXPRESS HER NEEDS. PT REMAINS ON 3 L O2. NO COMPLAINTS THIS SHIFT. CALL LIGHT WITHIN REACH, WCTM
--- NOTE | 2021-06-05 04:03 | NUR ---
SUMMARY NO NEW ISSUES NOTED. PT HAS SLEPT T/O SHIFT. PT CURRENTLY SLEEPING IN NO DISTRESS. CALL LIGHT IN REACH AND BED ALARM ON.
[2021-06-05 04:45] LABS: Hemoglobin 8.5 g/dL (11.5-16.0)
[2021-06-05 04:58] LABS: Albumin, Blood 2.2 g/dL (3.4-5.0); Anion Gap 6 mmol/L (6-16); Blood Urea Nitrogen 65 mg/dL (8-24); Bun/Creatinine Ratio 18.5 (12.0-20.0); CO2, Blood 30 mmol/L (21-32); Calcium, Blood 8.4 mg/dL (8.5-10.1); Chloride, Blood 98 mmol/L (98-108); Creatinine, Blood 3.51 mg/dL (0.40-1.00); Glomerular Filtration Rate 12 (60-); Glucose, Blood 178 mg/dL (70-99); Magnesium, Blood 2.2 mg/dL (1.6-2.4); Phosphorus, Blood 3.6 mg/dL (2.5-4.9); Potassium, Blood 3.6 mmol/L (3.5-5.5); Sodium, Blood 134 mmol/L (136-145)
--- NOTE | 2021-06-05 17:23 | NUR ---
Update 06/05/21: Pt. was [facility] by [facility]. Both facilities agreed that pt. would be most appropriate for hospice and would likely end up back in the hospital if she were not go on hospice. They are concerned about the level of care she will need and the dialysis required 3 x a week. Discussed care with bedside nurse, palliative care, and Dr. Urbano. We are all in agreement that hospice would likely be in the patient's best interest. Palliative care nurse Sarah called and spoke with patient's daughter Bertha to provide updates and discuss hospice further. Family has agreed to hospice at this time. They agree that pt. will be more comfortable with hospice services involved. They no longer want to put her through the dialysis treatments. Family would like to take her home with daughter Bertha living with pt. until she passes away. Spoke with [facility] and they are not able to see the pt. until . Family hoping to take pt. home tomorrow and requested that we find out if [facility] was available for intake tomorrow. [facility] has stated that they will be able to work pt. in tomorrow due to urgent need. They will contact the patient's daughter to discuss. They will also send order for hospital bed to be delivered tomorrow morning. They will be able to provide the intake at 10:[address] am [address] morning. Notified Dr. Garcia's. Family believes that they will be able to bring pt. out of the hospital in their vehicle and assist her with a wheelchair. No transportation needed.
--- NOTE | 2021-06-05 17:31 | NUR ---
PT HAS DIALYSIS THIS SHIFT. SINCE HER RETURN SHE HAS BEEN SLEEPING ALL DAY. SHE IS AROUSABLE BUT STATES SHE IS TIRED AND WANTS TO SLEEP. NOURISHMENT AND TOILETING HAVE BEEN OFFERED. PT HAD LARGE SOFT BM. NO DISTRESS NOTED. CALL LIGHT WITHIN REACH, BED IN LOW POSITION, SIDE RAILS UP. TM
[2021-06-06 04:22] LABS: Hematocrit 29.7 % (33.0-51.0); Hemoglobin 9.7 g/dL (11.5-16.0)
--- NOTE | 2021-06-06 04:41 | NUR ---
89 year old Female with ESRD on dialysis on 05/29/21 with admission dx volume overload has been weaned to room air with sats greater than 92%. She is pleasantly confused, said she thought is was 1931 when asked what year it is. Oriented to self only. Had HD yesterday tolerated. Planning to DC today with [facility] providing transport. PT at risk for fall, fell prior to admit, has healing skin tear lt FA. Wound care & dressing change to site. Has temp dialysis cath rt upper chest. No attempts to climb OOB unassisted.
[2021-06-06 04:48] LABS: Albumin, Blood 2.3 g/dL (3.4-5.0); Anion Gap 7 mmol/L (6-16); Blood Urea Nitrogen 55 mg/dL (8-24); Bun/Creatinine Ratio 18.2 (12.0-20.0); CO2, Blood 29 mmol/L (21-32); Calcium, Blood 8.8 mg/dL (8.5-10.1); Chloride, Blood 100 mmol/L (98-108); Creatinine, Blood 3.02 mg/dL (0.40-1.00); Glomerular Filtration Rate 15 (60-); Glucose, Blood 234 mg/dL (70-99); Magnesium, Blood 2.2 mg/dL (1.6-2.4); Phosphorus, Blood 3.4 mg/dL (2.5-4.9); Potassium, Blood 3.6 mmol/L (3.5-5.5); Sodium, Blood 136 mmol/L (136-145)
[2021-06-06] MEDS ORDERED: MIRALAX17 GM PO (09:46)
[2021-06-06] MEDS ORDERED: LORA.5 PO (09:59)
[2021-06-06] MEDS ORDERED: MORP20L PO (09:59)
[2021-06-06] MEDS ORDERED: HYOS.125 SL (10:01)
--- NOTE | 2021-06-06 10:55 | NUR ---
PT WAS DISCHAREGD HOME VIA WHEELCHAIR, ALERT AND CONFUSED, WITH BELONGINGS AT SIDE. PT WAS PROVIDED DC INTRUCTIONS ON MEDICATION CHANGES, WHEN TO FU WITH PROVIDERS AND HOSPICE/HH VISITS. HOSPICE NURSE ANIL Seo MET WITH PT AND DAUGHTER CAR SIDE UPON DC. IV DC'D AND WNL.
== END 2021-06-06 10:42 | disposition hospice, home (50) | DRG 291 ==
LOC: ER 12:06 → ICUE 12:07 → ICUW 12:07 → ICUE 14:47 → PCU 05-30 14:12 → MEDS 05-31 12:50 → ENPENDDIS 06-06 08:03 → MEDS 06-06 10:42
PROVIDERS: Emergency Medicine; Internal Medicine Nephrology; ADMIT Hospitalist
PROC: 5A09457 Assistance with Respiratory Ventilation, 24-96 Consecutive Hours, Continuous Positive Airway Pressure (ICD-10-PCS; principal; 2021-05-29)
PROC: 5A1D70Z Performance of Urinary Filtration, Intermittent, Less than 6 Hours Per Day (ICD-10-PCS; 2021-06-05)
DX: I13.2 Hypertensive heart and chronic kidney disease with heart failure and with stage 5 chronic kidney disease, or end stage renal disease (principal); N18.6 End stage renal disease; J96.01 Acute respiratory failure with hypoxia; I50.43 Acute on chronic combined systolic (congestive) and diastolic (congestive) heart failure; N25.81 Secondary hyperparathyroidism of renal origin; E87.1 Hypo-osmolality and hyponatremia; Z66 Do not resuscitate; K21.9 Gastro-esophageal reflux disease without esophagitis; D63.1 Anemia in chronic kidney disease; J98.01 Acute bronchospasm; G30.9 Alzheimer's disease, unspecified; E88.09 Other disorders of plasma-protein metabolism, not elsewhere classified; E11.65 Type 2 diabetes mellitus with hyperglycemia; E87.70 Fluid overload, unspecified; F02.80 Dementia in other diseases classified elsewhere, unspecified severity, without behavioral disturbance, psychotic disturbance, mood disturbance, and anxiety; M47.812 Spondylosis without myelopathy or radiculopathy, cervical region; E11.22 Type 2 diabetes mellitus with diabetic chronic kidney disease; Z96.649 Presence of unspecified artificial hip joint; E11.51 Type 2 diabetes mellitus with diabetic peripheral angiopathy without gangrene; R74.01 Elevation of levels of liver transaminase levels; M50.30 Other cervical disc degeneration, unspecified cervical region; Z79.899 Other long term (current) drug therapy; Z85.048 Personal history of other malignant neoplasm of rectum, rectosigmoid junction, and anus; Z99.2 Dependence on renal dialysis; Z88.2 Allergy status to sulfonamides; Z91.010 Allergy to peanuts; Z88.1 Allergy status to other antibiotic agents; Z98.890 Other specified postprocedural states; Z98.42 Cataract extraction status, left eye; Z98.41 Cataract extraction status, right eye; Z90.49 Acquired absence of other specified parts of digestive tract; Z87.891 Personal history of nicotine dependence
CPT/HCPCS: 36415; 36430; 71045; 76705; 80053; 80069; 80074; 82803; 82947; 83735; 84100; 84484; 85014; 85018; 85025; 86850; 86900; 86901; 86923; 93005; 93010; 93306; 94660; 94760; 94762; 97162; 97166; 97530; 97535; 99285-25; A9270; G0378; G0480; J1644; J2930; P9016; U0004